=== PATIENT | female | born 1965 | race Caucasian/White ===

== ENCOUNTER 2023-06-07 11:26 | Emergency (ER) | payer OTHER, SELFPAY ==
[2023-06-07 11:30] VITALS: BP 126/82; PULSE 88; RESP 18; TEMP 37.1; O2SAT 99; BMI 26.6
--- NOTE | 2023-06-07 11:32 | XR_ITS ---
[facility] [place] [address] Patient Name: JANETT PIPER MRN: [id number] date: 1965 Sex: F Assigned Patient Location: ER Current Patient Location: ER Accession/Order Number: [id number] Exam Date: 06/07/2023 11:45 Report Date: 06/07/2023 12:27 At the request of: GRACE DENISE Procedure: XR foot LT min 3V STUDY: XR foot LT min 3V, [id number] HISTORY: injury COMPARISON: None FINDINGS: Subacute appearing transverse oriented fracture of the proximal shaft of the left fifth proximal phalanx which demonstrates mild dorsal and medial displacement of the distal fracture with respect to the proximal. There is periosteal callus formation. No significant malalignment. No other acute fracture. No dislocation or suspicious osseous lesion. Mild Achilles insertional enthesopathy. XR/XR foot LT min 3V IMPRESSION: Healing mildly displaced fracture of the left fifth proximal phalanx. Electronically authenticated by: DAHIANA HAYS Date: 06/07/2023 12:27
[2023-06-07 12:54] VITALS: BP 136/92; PULSE 72; RESP 18; TEMP 36.5; O2SAT 100
--- NOTE | 2023-06-07 19:35 | ED_ITS ---
HPI - General Adult General Chief complaint: Extremity Injury, Lower Stated complaint: BROKEN L TOE Time Seen by Provider: 06/07/23 13:13 Source: patient Mode of arrival: walk-in Limitations: no limitations History of Present Illness HPI narrative: Patient is a 57-year-old female who is coming in today complaining of left 5th toe pain. Patient states that she fractured her left toe approximately 2 weeks ago. Patient states that 3 or 4 days ago, patient accidentally hit a hard object in her she believes that she refractured her left pinky 5th toe. Patient has mild swelling to the area, no ecchymosis. Patient works in a factory. Patient has no other acute complaints at this time. Patient is wondering if she needs to be off work. . All systems are negative except as noted/marked. All systems reviewed and o therwise negative. . Nurses note and vital signs reviewed and patient is not hypoxic. General: The patient appears well and in no apparent distress. Patient is resting comfortably on cart. Patient is not toxic, lethargic, or listless Skin: Warm, dry, no pallor noted. There is no rash noted. No petechiae, purpura. Head: Normocephalic, atraumatic Eye: Normal conjunctiva, no drainage, EOMI. PERRL Ears, Nose, Mouth, and Throat: oral mucosa is moist. Nares patent. Mouth without vesicles. Cardiovascular: Regular Rate and Rhythm, no murmur, gallop, rub Respiratory: Patient is in no distress, no accessory muscle use, lungs are clear to auscultation, no wheezing, rales or rhonchi Musculoskeletal: Patient has full range of motion of all of the extremities; Except to her left 5th pinky toe. Patient has moderate pain with flexion and extension of the left 5th pinky toe. Mild swelling, no ecchymosis. Nail is intacct. No some a little hematoma. No pain to the 5th left metatarsal. No other left foot pain, left ankle pain or left lower leg pain., no motor, sensory, or focal neurological deficits Neurological: A&O x3, normal speech Psychiatric: Cooperative Related Data Allergies Allergy/AdvReac Type Severity Reaction Status Date / Time No Known Drug Allergies Allergy Verified 06/07/23 11:30 Exam Constitutional Vital Signs, click to edit/add: Last Vital Signs Temp 97.7 F 06/07/23 12:54 Pulse 72 06/07/23 12:54 Resp 18 06/07/23 12:54 BP 136/92 H 06/07/23 12:54 Pulse Ox 100 06/07/23 12:54 O2 Del Method Room Air 06/07/23 12:54 Course Vital Signs Vital signs: Vital Signs Temperature 98.8 F 06/07/23 11:30 Pulse Rate 88 06/07/23 11:30 Respiratory Rate 18 06/07/23 11:30 Blood Pressure 126/82 06/07/23 11:30 Pulse Oximetry 99 06/07/23 11:30 Oxygen Delivery Method Room Air 06/07/23 11:30 Temperature 97.7 F 06/07/23 12:54 Pulse Rate 72 06/07/23 12:54 Respiratory Rate 18 06/07/23 12:54 Blood Pressure 136/92 H 06/07/23 12:54 Pulse Oximetry 100 06/07/23 12:54 Oxygen Delivery Method Room Air 06/07/23 12:54 Medical Decision Making MDM Narrative Medical decision making narrative: Patient had her left 4th and 5th toe douglas tape, postop shoe was applied. Splint was assisted with . the patient was neurovascularly intact before and after the splint was placed. the affected bones/injured area had proper alignment in a splint. Education on splint care at home was given at bedside. Patient and family have no questions at discharge. Patient has a mildly displaced fracture of the proximal phalanges of the left 5th pinky toe. Patient will douglas tape, postop shoe is applied. Work restrictions were given. Patient will continue using Tylenol, Motrin, ice and fo llow-up with PCP. Discharge Plan Discharge Chief Complaint: Extremity Injury, Lower Clinical Impression: Fracture of toe of left foot Patient Disposition: Home, Self-Care Instructions: Toe Fracture (ED), Foot Fracture in Adults (ED), Post Surgical Shoe (ED) Additional Instructions: Ice 20 minutes on, 20 minutes off. Douglas taping for the next 2-3 weeks. Keep douglas tape on at all times for the next 2-3 weeks unless using ice or taking a shower Wear postop shoe while ambulating only. Stand Alone Forms: Portal Instructions Referrals: Physician,Non-Staff, MD [Primary Care Provider] - 1 week Discharge Date/Time: 06/07/23 15:13
== END 2023-06-07 15:13 | disposition home or self-care (01) ==
PROVIDERS: Emergency Provider Emergency Medicine
DX: S92.512A Displaced fracture of proximal phalanx of left lesser toe(s), initial encounter for closed fracture (principal); W22.8XXA Striking against or struck by other objects, initial encounter
CPT/HCPCS: 73630; 99283

== ENCOUNTER 2023-11-14 08:51 | Emergency (ER) | payer OTHER, SELFPAY ==
[2023-11-14 08:54] VITALS: PULSE 94; RESP 18; TEMP 37.1; O2SAT 99; BMI 23.0
[2023-11-14 08:58] VITALS: BP 120/84
[2023-11-14 09:00] VITALS: O2SAT 99
--- NOTE | 2023-11-14 09:00 | XR_ITS ---
The [address] [address] Patient Name: JANETT PIPER MRN: [id number] date: 1965 Sex: F Assigned Patient Location: ER Current Patient Location: ER Accession/Order Number: [id number] Exam Date: 11/14/2023 09:05 Report Date: 11/14/2023 09:21 At the request of: KAIA THOMPSON Procedure: XR chest 1V EXAMINATION: XR chest 1V HISTORY: cough COMPARISON: No relevant comparison available. FINDINGS: LUNGS: Hyperexpanded lungs without appreciable infiltrates. Symmetric mild opacity over lung bases is suspected to be secondary to anterior soft tissue artifact. VASCULATURE: No increased pulmonary vasculature. PLEURA: No pneumothorax, effusion, or pleural thickening. CARDIAC: No cardiomegaly or cardiac silhouette abnormality. MEDIASTINUM: No visible mass or adenopathy. BONES: No fracture or visible bone lesion. OTHER: Negative. XR/XR chest 1V IMPRESSION: 1. No acute cardiopulmonary process. Electronically authenticated by: FLORENCE PARKINSON Date: 11/14/2023 09:21
--- NOTE | 2023-11-14 09:06 | ED.URI1 ---
HPI - URI/Sore Throat General Chief Complaint: Upper Respiratory Infection Stated Complaint: CHEST CONGESTION Time Seen by Provider: 11/14/23 09:02 Source: patient Limitations: no limitations History of Present Illness HPI Narrative: 57-year-old female presents for a 4-day history of cough and congestion. She has been coughing up some clear phlegm. She had a fever of 101 degrees at home she states. No vomiting or diarrhea. She has not had much of an appetite. Related Data Allergies Allergy/AdvReac Type Severity Reaction Status Date / Time No Known Drug Allergies Allergy Verified 06/07/23 11:30 Review of Systems ROS Narrative A ten point review of systems is negative except as noted above. PFSH PFSH Social History Smoking status: Current every day smoker Exam Narrative Exam Narrative: Nurses note and vital signs reviewed and patient is not hypoxic. General: The patient appears well and in no apparent distress. Patient is resting comfortably on cart. Skin: Warm, dry, no pallor noted. There is no rash noted. Head: Normocephalic, atraumatic Eye: Normal conjunctiva, no drainage Ears, Nose, Mouth, and Throat: oral mucosa is moist. Nares patent. Cardiovascular: Regular Rate and Rhythm Respiratory: Patient is in no distress, no accessory muscle use, lungs are clear to auscultation, no wheezing, rales or rhonchi Back: non-tender GI: Soft and nontender Musculoskeletal: The patient has no evidence of calf tenderness, no pitting edema, symmetrical pulses noted bilaterally Neurological: A&O, normal speech Psychiatric: Cooperative Constitutional Vital Signs, click to edit/add: Last Vital Signs Temp 98.7 F 11/14/23 08:54 Pulse 94 H 11/14/23 08:54 Resp 18 11/14/23 08:54 BP 120/84 11/14/23 08:58 Pulse Ox 99 11/14/23 09:00 O2 Del Method Room Air 11/14/23 09:00 Course Vital Signs Vital signs: Vital Signs Temperature 98.7 F 11/14/23 08:54 Pulse Rate 94 H 11/14/23 08:54 Respiratory Rate 18 11/14/23 08:54 Pulse Oximetry 99 11/14/23 08:54 Oxygen Delivery Method Room Air 11/14/23 08:54 Temperature 98.7 F 11/14/23 08:54 Pulse Rate 94 H 11/14/23 08:54 Respiratory Rate 18 11/14/23 08:54 Blood Pressure 120/84 11/14/23 08:58 Pulse Oximetry 99 11/14/23 09:00 Oxygen Delivery Method Room Air 11/14/23 09:00 MDM - URI/Sore Throat MDM Narrative Medical decision making narrative: Testing shows presence of influenza. Treatment diagnosis and follow-up were discussed with the patient. Differential Diagnosis Differential diagnosis: Likely upper respiratory infection, influenza and other (COVID, pneumonia) Lab Data Attestation: I reviewed the patient's lab results. Labs: Lab Results 11/14/23 Range/Units 08:58 Influenza Type A Ag Positive A Influenza Type B Ag Negative SARS-CoV-2 Ag (CV2AG) Negative (NEGATIVE) Imaging Data Chest x-ray: Radiologist's impression: ITS Impressions Chest X-Ray 11/14/23 09:00 IMPRESSION: 1. No acute cardiopulmonary process. Electronically authenticated by: FLORENCE PARKINSON Date: 11/14/2023 09:21 Discharge Plan Discharge Chief Complaint: Upper Respiratory Infection Clinical Impression: Influenza Patient Disposition: Home, Self-Care Time of Disposition Decision: 09:26 Condition: Good Mode of Transportation: Private Vehicle Instructions: Influenza (ED), Flu Shot (Vaccine) for Adults (ED) Stand Alone Forms: Portal Instructions Referrals: Physician,Non-Staff, MD [Primary Care Provider] - 1 week
[2023-11-14 09:20] LABS: Influenza Virus A Antigen Positive; Influenza Virus B Antigen Negative; Internal Control Within Normal Limits; SARS-CoV-2 Ag NEGATIVE (NEGATIVE)
[2023-11-14 09:31] VITALS: BP 118/92; PULSE 81; RESP 18; O2SAT 99
== END 2023-11-14 09:33 | disposition home or self-care (01) ==
PROVIDERS: Emergency Provider Emergency Medicine
DX: J10.1 Influenza due to other identified influenza virus with other respiratory manifestations (principal); F17.210 Nicotine dependence, cigarettes, uncomplicated; Z20.822 Contact with and (suspected) exposure to COVID-19
CPT/HCPCS: 71045; 87804; 87811; 99284

== ENCOUNTER 2023-11-19 11:33 | Emergency (ER) | payer OTHER, SELFPAY ==
[2023-11-19 11:37] VITALS: BP 114/78; PULSE 117; RESP 18; TEMP 36.6; O2SAT 98; BMI 23.4
[2023-11-19 11:41] VITALS: O2SAT 98
--- OUTSIDE RECORDS SUMMARY | 2023-11-19 11:43 | XMS_ITS | CCD ---
Author Name Unknown Address [address] [place] [address] Organization [facility] Care Team Providers Care Neurosurgical Nurse Name Role Phone Hajdari, Astrit H Unavailable Unavailable Hajdari, Astrit H Unavailable Unavailable Venegas, Nuria Unavailable Unavailable Venegas, Nuria Unavailable Unavailable Hajdari, Astrit H Unavailable Unavailable Hajdari, Astrit H Unavailable Unavailable DR NURIA VENEGAS Primary Care Unavailable DR YURY SAINI Admitting Unavailable YENY, DR YURY Meza Attending Unavailable DR YURY SAINI Consulting Unavailable Allergies Allergy Classification Reported Allergen(s) Allergy Type Date of Onset Reaction(s) Facility (1 source) No Known Medication Allergies; Translations: [No Known Medication Allergies] Propensity to adverse reactions (disorder) [facility] Repository Problems Problem Classification Problem Date Documented Da te Episodic/Chronic Other upper respiratory disease (4 sources) Nasal congestion; Translations: [NASAL CONGESTION] Onset: 06-06-2022 Episodic Substance-related disorders (1 source) Nicotine dependence, cigarettes, uncomplicated; Translations: [NICOTINE DEPEND CIGARETTES UNCOMP] Onset: 06-08-2022 Chronic Unclassified (1 source) CONTACT W/AND (SUSP) EXPOS COVID-19; Translations: [CONTACT W/AND (SUSP) EXPOS COVID-19] Onset: 06-08-2022 Results Test Name Value Interpretation Reference Range Facility Covid-19 PCR (CVDTB)on 05-28 SARS-CoV-2 (COVID-19) RNA KRISTEN+probe Ql (Unsp spec) Not detected Normal NOT DETECTED [facility] Comment on above: Result Comment: When diagnostic testing is negative, the possibility of a false negative should be considered in the context of a patient's recent exposures and the presence of clinical signs and symptoms consistent with SARS-CoV-2. This test is not yet approved or cleared by the [place] FDA. When there are no FDA-approved or cleared tests available, and other criteria are met, FDA can make tests available under an emergency access mechanism called an Emergency Use Authorization (EUA). The EUA for this test is supported by the [employer] of Health and Human Service's declaration that circumstances exist to justify the emergency use of in vitro diagnostics for the detection and/or diagnosis of the virus that causes COVID-19. This EUA will remain in effect for the duration of the COVID-19 declaration justifying emergency of IVDs, unless it is terminated or revoked by the FDA (after which the test may no longer be used). Performed By: #### [facility] #### [facility] [address] [place] [address] Dr. Shameka Sánchez ED Note-Physicianon 11-19-19 ED Note-Physician Patient: JOSUE PIPER Age: 51 years Sex: Female : 1965 Associated Diagnoses: None Author: Manpreet Arce PA-C Basic Information Time seen: Date & time 11/14/17 17:24:00. History source: Patient. Arrival mode: Private vehicle. History limitation: None. Additional information: Chief Complaint from Nursing Triage Note : Chief Complaint 11/14/2017 16:22 EST Chief Complaint pt states sore throat x4 days, body aches, progressively worse with fever, denies cough, able to take fluids well no problems breathing. LD tylenol 1200 . History of Present Illness 51-year-old white female presents emergency room with severe sore throat for the last 2-3 days. Patient is a smoker and denies any ill contacts. She did not go to work Wednesday and has been not feeling well for the last couple days. She is a patient of Nuria Venegas M.D. otherwise healthy. No medication prior to arrival. Patient denies much of a cough. She denies any chills but has had low-grade fever. Patient denies any nausea vomiting associated with her symptoms Review of Systems Constitutional symptoms: Fever. Skin symptoms: Negative except as documented in HPI. Eye symptoms: Negative except as documented in HPI. ENMT symptoms: Ear pain, sore throat. Respiratory symptoms: Negative except as documented in HPI. Cardiovascular symptoms: Negative except as documented in HPI. Gastrointestinal symptoms: Negative except as documented in HPI. Genitourinary symptoms: Negative except as documented in HPI. Musculoskeletal symptoms: Negative except as documented in HPI. Neurologic symptoms: Negative except as documented in HPI. Psychiatric symptoms: Negative except as documented in HPI. Endocrine symptoms: Negative except as documented in HPI. Hematologic/Lymphatic symptoms: Negative except as documented in HPI. Allergy/immunologic symptoms: Negative except as documented in HPI. Additional review of systems information: All other systems reviewed and otherwise negative, All systems reviewed as documented in chart. Health Status Allergies: Allergic Reactions (Selected)No Known Medication Allergies. Past Medical/ Family/ Social History Medical history: Yareli ([id number]): Resolved.. Surgical history: No active procedure history items have been selected or recorded.. Family history: No family history items have been selected or recorded.. Social history: Social & Psychosocial TnhzkxNiseqrg95/02/2017 Risk Assessment: Denies Alcohol UseSubstance Abuse08/28/2017 Risk Assessment: Denies Substance AbuseTobacco Comment: smokes 1/3 ppd. - 08/28/2017 19:04 - Clare SUAREZ, Shanelle Esparza Problem list: Active Problems (1)Smoker . Physical Examination Vital Signs Vital Signs 11/14/2017 16:22 EST Temperature Oral 36.9 DegC Peripheral Pulse Rate 80 bpm Respiratory Rate 20 br/min Systolic Blood Pressure 126 mmHg Diastolic Blood Pressure 92 mmHg HI SpO2 98 % . Measurements 11/14/2017 16:22 EST Height/Length Measured 160 cm Body Mass Index Measured 22.27 kg/m2 Weight Measured 57 kg . Basic Oxygen Information 11/14/2017 16:22 EST SpO2 98 % Oxygen Therapy Room air . General: Alert, no acute distress, anxious, Not ill-appearing, Skin: Warm, dry, no rash. Head: Normocephalic, atraumatic. Neck: Supple, no tenderness. Eye: Pupils are equal, round and reactive to light, extraocular movements are intact, normal conjunctiva, vision unchanged. Ears, nose, mouth and throat: Tympanic membranes clear, oral mucosa moist, Throat: Bilateral, moderate, pharynx, tonsil, erythema, swelling. Cardiovascular: Regular rate and rhythm, No murmur, Normal peripheral perfusion, No edema. Respiratory: Lungs are clear to auscultation, respirations are non-labored, breath sounds are equal, Symmetrical chest wall expansion. Chest wall: No tenderness, No deformity. Back: Nontender, Normal range of motion. Musculoskeletal: Normal ROM, normal strength. Gastrointestinal: Soft, Nontender, Non distended, Normal bowel sounds, No organomegaly. Genitourinary: No tenderness. Neurological: Alert and oriented to person, place, time, and situation, No focal neurological deficit observed, normal sensory observed, normal motor observed, normal speech observed. Lymphatics Psychiatric: Cooperative, appropriate mood & affect. Medical Decision Making Differential Diagnosis: Streptococcal pharyngitis. Rationale: Patient has had severe sore throat for nearly 3 days now. She is not taking any medication today. She denies any chest pain, shortness of breath. She denies any nausea, vomiting.. Documents reviewed: Emergency department nurses' notes. Orders Launch Order Profile (Selected) Inpatient OrdersOrderedBicillin LA 1,200,000 units/2 mL Susp-Inj: 1,200,000 unit(s) = 2 mL, Susp-Inj, IntraMuscular, Once, Stop date 11/14/17 17:38:00 EST, STAT, Start date 11/14/17 17:38:00 ESTibuprofen 600 mg Tab: 600 mg = 1 tab(s), Tab, Oral, Once, Stop date 11/14/17 17:39:00 EST, STAT, Start date 11/14/17 17:39:00 ESTCompletedInfluenza A&B Ag: Swab, Stat collect, 11/14/17 16:26:00 EST, Stop date 11/14/17 16:26:00 EST, Nurse collect, Print Label By Order LocationRapid Strep w/rfx: Swab, Stat collect, 11/14/17 16:26:00 EST, Stop date 11/14/17 16:26:00 EST, Nurse collect, Print Label By Order LocationPrescriptionsPrescrib edLidocaine Viscous 2% mucous membrane solution: 0.1 gram, 5 mL, Topical, TIDAC for mouth sore pain, 100 mL, Refill(s) 0ibuprofen 600 mg Tab: 600 mg = 1 tab(s), Oral, q8hr, # 30 tab(s), Refills(s) 0. Impression and Plan Diagnosis Strep pharyngitis ([id number] J02.0, Discharge, Medical) Plan Condition: Stable. Disposition: Discharged: Time 11/14/17 17:33:00, to home. Prescriptions: Launch prescriptions Pharmacy:ibuprofen 600 mg Tab (Prescribe): 600 = 1 mg tab(s), Oral, q8hr, # 30 tab(s), Refills(s) 0Lidocaine Viscous 2% mucous membrane solution (Prescribe): 0.1 gram, 5 mL, Topical, TIDAC for mouth sore pain, 100 mL, Refill(s) 0. Patient was given the following educational materials: Strep Throat, Mqqp-au-Mkdw, Strep Throat, Naxg-lj-Hwhg. Follow up with: Nuria Venegas In 3 days 11/17/2017 Call in am for recheck later this week if you fail to improve. Take your ibuprofen and alternate with Tylenol every 4 hours back and forth so that they are 8 hours between the same medications. Use lidocaine viscous for topical anesthetic so that you can eat and drink without difficulty. Off work ?2 days. Counseled: Patient, Regarding diagnosis, Regarding diagnostic results, Regarding treatment plan, Regarding prescription, Patient indicated understanding of instructions. Notes: Dr Gonzalez has been informed about evaluation and treatment of patient during this visit. This report was transcribed using voice recognition software. Every effort was made to ensure accuracy, however, inadvertently computerized journal clerk mistakes may be present.Patient was treated and evaluated by the physician assistant track and field coach. The attending physician was in the emergency department at all times and supervised care. The case was discussed with the attending physician and diagnostics were reviewed as needed. Normal [facility] Comment on above: Result Comment: Elec tronically Signed By: Manpreet Arce PA-C\.br\Date and Time Signed: 11/14/17 17:44 EST\.br\Electronically Co-Signed By: Yony Gonzalez M.D.\.br\Date and Time Co-Signed: 11/19/17 20:11 EST Coding Summary.on 11-16-2017 Coding Summary. CODING DATE: 018 FINAL [facility] STATUS: Home (Routine DC) PAYOR: Medicaid EAPG DESCRIPTION 0395 LEVEL II IMMUNOLOGY TESTS 0396 LEVEL I MICROBIOLOGY TESTS 0435 CLASS I PHARMACOTHERAPY 0490 INCIDENTAL TO MEDICAL, SIGNIFICANT PROCEDURE OR THERAPY VISIT 0562 INFECTIONS OF UPPER RESPIRATORY TRACT & OTITIS MEDIA ADMIT DX: REASON FOR VISIT DX: J02.9 Acute pharyngitis, unspecified FINAL DX: PRINCIPAL: J02.0 Streptococcal pharyngitis SECONDARY: PYMT PROC EAPG STAT DESCRIPTION DOCTOR NAME DATE NOTE: The code number assigned matches the documented diagnosis and / or procedure in the patient's chart. However, the narrative phrase printed from the coding software may appear abbreviated, or result in slightly different terminology. Revised Coded By: Negar Maria Revised Date Saved: 11/15/2017 10:38 pm Normal [facility] ED Clinical Summaryon 2017 ED Clinical Summary (Inserted Image. Franca ble to display) [place] [id number] ED Clinical SummaryPerson Information Name: [facility] Age[facility] 51 Years : 1965 12:00 AM Sex: Female Language:Paraguayan PCP: Rubi CHIN, Nuria Narvaez Marital Status: Visit Id: Visit Reason:Throat pain - Adult; SORE THROAT, SWOLLEN GLANDS Speciality: Acuity: 4 Enc Type: Emergency Med Service: Emergency Arrival:11/14/2017 4:02 PM Discharge: 11/14/2017 6:32 PM LOS: 000 02:30 Checkin:11/14/2017 4:02 PM Checkout: 11/14/2017 6:32 PM Dispo Type: Home (Routine DC) EVENTS:Event Name Event Status Request Date/Time Start Date/Time Complete Date/Time Arrive Complete 11/14/2017 4:02 PM 11/14/2017 4:02 PM 11/14/2017 4:02 PM Document Home Meds Request 11/14/2017 4:02 PM Triage Complete 11/14/2017 4:02 PM 11/14/2017 4:26 PM 11/14/2017 4:26 PM Pending Labs Complete 11/14/2017 4:26 PM 11/14/2017 5:09 PM Swab Complete 11/14/2017 4:26 PM 11/14/2017 5:[address] Exam Complete 11/14/2017 5:26 PM 11/14/2017 5:26 PM 11/14/2017 5:26 PM Registration Complete 11/14/2017 5:26 PM 11/14/2017 5:27 PM 11/14/2017 5:48 PM Bed Assign Complete 11/14/2017 5:27 PM 11/14/2017 5:27 PM 11/14/2017 5:27 PM RN Exam Complete 11/14/2017 5:27 PM 11/14/2017 5:31 PM 11/14/2017 5:[address] Exam Complete 11/14/2017 5:29 PM 11/14/2017 5:29 PM 11/14/2017 5:29 PM Meds Admin Complete 11/14/2017 5:38 PM 11/14/2017 5:59 PM Meds Admin Complete 11/14/2017 5:39 PM 11/14/2017 5:59 PM Discharge Complete 11/14/2017 5:39 PM 11/14/2017 6:32 PM 11/14/2017 6:32 PM Reg Complete Request 11/14/2017 5:48 PM Reg Bed Request Complete 11/14/2017 5:48 PM 11/14/2017 5:48 PM 11/14/2017 5:48 PM Transfer Complete 11/14/2017 6:32 PM 11/14/2017 6:32 PM 11/14/2017 6:32 PM ADDRESS:[address] [place] [id number] [facility] DOC NOTES: MEDICAL INFORMATION: Prescriptions Given:Prescription Display ibuprofen (ibuprofen 600 mg Tab) 600 mg = 1 tab(s), Oral, q8hr, # 30 tab(s), Refills(s) 0 lidocaine topical (Lidocaine Viscous 2% mucous membrane solution) 0.1 gram, 5 mL, Topical, TIDAC for mouth sore pain, 100 mL, Refill(s) 0 PATIENT EDUCATION INFORMATION: Instructions:Strep Throat, Iycc-bb-Erzb Follow up:With: Address: When: Nuria Venegas [address] [place] [address] [facility] ([employer] In 3 days 11/17/2017 Comments: Call in am for recheck later this week if you fail to improve. Take your ibuprofen and alternate with Tylenol every 4 hours back and forth so that they are 8 hours between the same medications. Use lidocaine viscous for topical anesthetic so that you can eat and drink without difficulty. Off work ?2 days DIAGNOSIS:Strep pharyngitis Normal [facility] ED Patient Education Noteon 11-14-2017 ED Patient Education Note Patient Education Materials Follows:Strep ThroatStrep throat is an infection of the throat. It is caused by a germ. Strep throat spreads from person to person by coughing, sneezing, or close contact. HOME CARE? Rinse your mouth (gargle) with warm salt water (1 teaspoon salt in 1 cup of water). Do this 3 to 4 times per day or as needed for comfort.? Family members with a sore throat or fever should see a doctor.? Make sure everyone in your house washes their hands well.? Do not share food, drinking cups, or personal items.? Eat soft foods until your sore throat gets better.? Drink enough water and fluids to keep your pee (urine) clear or pale yellow.? Rest.? Stay home from school, daycare, or work until you have taken medicine for 24 hours.? Only take medicine as told by your doctor.? Take your medicine as told. Finish it even if you start to feel better.GET HELP RIGHT AWAY IF:? You have new problems, such as throwing up (vomiting) or bad headaches.? You have a stiff or painful neck, chest pain, trouble breathing, or trouble swallowing.? You have very bad throat pain, drooling, or changes in your voice.? Your neck puffs up (swells) or gets red and tender.? You have a fever.? You are very tired, your mouth is dry, or you are peeing less than normal.? You cannot wake up completely. ? You get a rash, cough, or earache.? You have green, yellow-brown, or bloody spit.? Your pain does not get better with medicine.MAKE SURE YOU:? Understand these instructions.? Will watch your condition.? Will get help right away if you are not doing well or get worse.Document Released: 03/01/2009 Document Revised: 12/05/2012 Document Reviewed: 11/12/2011ExitCare? Patient Information ?2014 [employer] This information is not intended to replace advice given to you by your health care provider. Make sure you discuss any questions you have with your health care provider. Normal [facility] ED Patient Summaryon 018 ED Patient Summary (Inserted Image. Franca ble to display) [address] [address] Patient Discharge Instructions Person Information Name: JANETT PIPER Age: 51 Years Date: 11/14/2017 4:02 PMDischarge Diagnosis: Strep pharyngitis Primary Care Physician: Nuria Venegas MD Provider InformationPrimary Provider: Yony Gonzalez M.D.hysicichanda Chocolate Coater:None The exam and treatment you received in the Emergency Department were for an urgent problem and are not intended as complete care. It is important that you follow up with a doctor, nurse practitioner, or physician?s assistant track and field coach for ongoing care. If your symptoms become worse or you do not improve as expected and you are unable to reach your usual health care provider, you should return to the Emergency Department. We are available 24 hours a day. JANETT PIPER has been given the following list of patient education materials, prescriptions and follow-up instructions: Follow-up Instructions:With: Address: When: Nuria Venegas [address] [place] [id number] [facility] (1) In 3 days 11/17/2017 Comments: Call in am for recheck later this week if you fail to improve. Take your ibuprofen and alternate with Tylenol every 4 hours back and forth so that they are 8 hours between the same medications. Use lidocaine viscous for topical anesthetic so that you can eat and drink without difficulty. Off work ?2 days In the event that this physician does not participate in your insurance network, please consult with your insurance company to find a nearby participating provider. Patient Education Materials:Strep Throat, Flbr-zc-Qole Medications Given:Medication Dose Route penicillin G benzathine 3037414.00 unit(s) IntraMuscular Right Gluteus Medius ibuprofen 600.00 mg Oral Medication Information:New MedicationsPrinted Prescriptionsibuprofen (ibuprofen 600 mg Tab) 1 Tabs By Mouth every 8 hours. Refills: 0.lidocaine topical (Lidocaine Viscous 2% mucous membrane solution) 5 Milliliter Topical before meals as needed for mouth sore pain. Refills: 0.Medications to Continue with No ChangesOther Medicationslevothyroxine (levothyroxine 50 mcg (0.05 mg) Tab) 1 Tabs By Mouth every day. pt advised to follow up with FP w/in 3 days to adjust medication. Refills: 0.Comment: Pharmacy Information: [facility] Thank you for choosing [facility] Patient Education Materials: Strep ThroatStrep throat is an infection of the throat. It is caused by a germ. Strep throat spreads from person to person by coughing, sneezing, or close contact. HOME CARE? Rinse your mouth (gargle) with warm salt water (1 teaspoon salt in 1 cup of water). Do this 3 to 4 times per day or as needed for comfort.? Family members with a sore throat or fever should see a doctor.? Make sure everyone in your house washes their hands well.? Do not share food, drinking cups, or personal items.? Eat soft foods until your sore throat gets better.? Drink enough water and fluids to keep your pee (urine) clear or pale yellow.? Rest.? Stay home from school, daycare, or work until you have taken medicine for 24 hours.? Only take medicine as told by your doctor.? Take your medicine as told. Finish it even if you start to feel better.GET HELP RIGHT AWAY IF:? You have new problems, such as throwing up (vomiting) or bad headaches.? You have a stiff or painful neck, chest pain, trouble breathing, or trouble swallowing.? You have very bad throat pain, drooling, or changes in your voice.? Your neck puffs up (swells) or gets red and tender.? You have a fever.? You are very tired, your mouth is dry, or you are peeing less than normal.? You cannot wake up completely. ? You get a rash, cough, or earache.? You have green, yellow-brown, or bloody spit.? Your pain does not get better with medicine.MAKE SURE YOU:? Understand these instructions.? Will watch your condition.? Will get help right away if you are not doing well or get worse.Document Released: 03/01/2009 Document Revised: 12/05/2012 Document Reviewed: 11/12/2011ExitCare? Patient Information ?2014 [employer] This information is not intended to replace advice given to you by your health care provider. Make sure you discuss any questions you have with your health care provider.VERONIQUE Lundberg TAMMY KAY , have received the following patient education materials/instructions and have verbalized understanding: Patient Education Materials: Strep Throat, Fgbz-qy-Dtma Follow-up Instructions: With: Address: When: Nuria Venegas [facility] [place] [address] [facility] (1) In 3 days 11/17/2017 Comments: Call in am for recheck later this week if you fail to improve. Take your ibuprofen and alternate with Tylenol every 4 hours back and forth so that they are 8 hours between the same medications. Use lidocaine viscous for topical anesthetic so that you can eat and drink without difficulty. Off work ?2 days Prescriptions: [ibuprofen (ibuprofen 600 mg Tab)] [lidocaine topical (Lidocaine Viscous 2% mucous membrane solution)] Patient Signature Date Clinician/Nurse Signature Date 11/14/17 18:32:20 Normal [facility] Influenza A&B Agon 8 Influenzae A Ag Negative Normal Negative [facility] Comment on above: Performed By: #### 2 [id number] ####[facility] [address] [place] [address] Influenzae B Ag Negative Normal Negative [facility] Comment on above: Result Comment: Test sensitivity and specificity vary for age group, specimen type, antigen types, and prevalence of disease. Test results must be evaluated in conjunction with other clinical data available to the physician. Individuals who received nasally administered Influenza A vaccine may have positive test results up to 3 days after vaccination. Performed By: #### 2 [id number] ####[facility] [address] [place] [address] Progress Note-Nurseon 2017 Progress Note-Nurse Pt aware of need for medhold, will continue to moniotro closely Normal [facility] ED Note-Physicianon 09-20-20 ED Note-Physician Patient: JOSUE PIPER Age: 51 years Sex: Female : 1965 Associated Diagnoses: None Author: Guicho Bailey MD Basic Information Time seen: Date & time 08/28/17 19:23:00. History of Present Illness 51-year-old female presents with multiple complaints the chief complaint is chronic fatigue issues feels like she is completely out of energy for the last 3 months. Patient states has been 15 years since she seen her family practice for illicit physician or been to the doctor. He denies any medications. Patient states she feels her chest flutter occasionally. Patient also states she has excessive sweatiness during the night and has to change his sheets multiple times patient is a 50-mxml-vspr smoker she denies any change in weight recently. Denies any nodules or lymphadenopathy. Review of Systems Constitutional symptoms: Negative except as documented in HPI. Respiratory symptoms: no shortness of breath. Cardiovascular symptoms: no chest pain. Neurologic symptoms: no headache. Health Status Allergies: Allergic Reactions (Selected)No Known Medication Allergies. Past Medical/ Family/ Social History Medical history: ResolvedNone ([id number]): Resolved.. Social history: Social & Psychosocial NcrejkEaryscp92/02/2017 Risk Assessment: Denies Alcohol UseSubstance Abuse08/28/2017 Risk Assessment: Denies Substance AbuseTobacco Comment: smokes 1/3 ppd. - 08/28/2017 19:04 - Clare SUAREZ, Shanelle Esparza Physical Examination Vital Signs Time: 08/28/17 20:25:00. General: Alert, no acute distress. Skin: Warm, dry, pink. Head: Normocephalic. Neck: Supple, no tenderness. Eye: Pupils are equal, round and reactive to light. Cardiovascular: Regular rate and rhythm, Normal peripheral perfusion. Respiratory: Lungs are clear to auscultation, respirations are non-labored. Chest wall: No tenderness, No deformity. Back: Nontender. Musculoskeletal: Normal ROM, normal strength, no tenderness. Gastrointestinal: Soft, Nontender, Non distended. Neurological: Alert and oriented to person, place, time, and situation. Lymphatics: No lymphadenopathy. Psychiatric: Cooperative. Medical Decision Making Patient has multiple complaints including lightheadedness fatigue radiculopathy in the right thumb, psoriasis, and diaphoresis. Patient underwent a cardiac workup including: Orthostatics troponins CBC CMP EKG and TSH with T4 all returned within normal values except for mildly depressed potassium at 3.4 and TSH and T4 significantly depressed. Results discussed with patient and advised to start levothyroxine daily. Impression and Plan Cardiac no strike was negative today. Source of heart palpitations possibly be elicited with a Holter monitor in the future. Likely source of fatigue is hypothyroidism as manifested by depressed TSH T4 patient. 50 ?g of levothyroxine daily. Patient has a plethora of other complaints of which are not appropriate to assess in the emergency room. Patient advised to follow-up with family practice within 3 days. Diagnosis Hypothyroid ([id number] E03.9, Discharge, Medical) Plan Condition: Stable. Disposition: Discharged: to home. Normal [facility] Comment on above: Result Comment: Elec tronically Signed By: Leo CHIN, Guicho\.br\Date and Time Signed: 09/19/17 22:09 EST Coding Summary.on 08-30-2017 Coding Summary. CODING DATE: 017 FINAL [facility] STATUS: Home (Routine DC) PAYOR: Self Pay APC DESCRIPTION 5521 Level 1 Imaging without Contrast 5025 Level 5 Type A ED Visits ADMIT DX: REASON FOR VISIT DX: R53.83 Other fatigue R42 Dizziness and giddiness FINAL DX: PRINCIPAL: R00.2 Palpitations SECONDARY: R53.83 Other fatigue E03.9 Hypothyroidism, unspecified F17.210 Nicotine dependence, cigarettes, uncomplicated PYMT PROC APC STAT DESCRIPTION DOCTOR NAME DATE NOTE: The code number assigned matches the documented diagnosis and / or procedure in the patient's chart. However, the narrative phrase printed from the coding software may appear abbreviated, or result in slightly different terminology. Revised Coded By: Terese Childs Revised Date Saved: 08/30/2017 10:58 am Normal [facility] XR Chest 2 Viewson 7 XR Chest 2 Views Exam Date/Time:2016 20:59 ESTReason for Exam:CancerReportIMPRESSION: NO ACUTE CARDIOPULMONARY ABNORMALITY. CLINICAL HISTORY: Cancer. Vomiting, diarrhea, smoking history.COMPARISONS: None available.FINDINGS: 2 views were obtained. Normal cardiac silhouette. Lungs are clear withoutconsolidation. No pleural effusion or pneumothorax. The bony thorax is unremarkable. FINAL REPORT Dictated: 08/29/2017 8:14 am Dolores Finney MD Signed (Electronic Signature): 08/29/2017 8:14 am Signed by: Dolores Finney MD Transcribed by: ANN Technologist: LUIS F Normal [facility] Auto Diffon 08-28-2017 Basophils Auto #/vol (Bld) 0.4 % Normal 0.0-2.0 [facility] Comment on above: Order Comment: Order Added by Discern Expert. Performed By: #### 2 462545, 4799346, 5025630, 64994323, 09317126, 90551951 ####[facility] [address] [place] [address] Basophils Auto #/vol (Bld) 0.0 E9/L Normal 0.0-0.2 [facility] Comment on above: Order Comment: Order Added by Discern Expert. Performed By: #### 2 288024, 4019055, 9949286, 12759580, 43211710, 87282057 ####[facility] [address] [place] [address] Eosinophils 0.3 E9/L Normal 0.0-0.5 [facility] Comment on above: Order Comment: Order Added by Discern Expert. Performed By: #### 2 491656, 5709702, 1748885, 22361113, 81242561, 14601246 ####[facility] [address] [place] [address] Eosinophils/100 leukocytes 3.7 % Normal 0.0-8.0 [facility] Comment on above: Order Comment: Order Added by Discern Expert. Performed By: #### 2 980180, 2070702, 3336240, 15065243, 26918369, 08543409 ####[facility] [address] [place] [address] Lymphocytes 2.3 E9/L Normal 1.0-4.0 [facility] Comment on above: Order Comment: Order Added by Discern Expert. Performed By: #### 2 679939, 7909307, 7457535, 24213883, 65943610, 63466126 ####[facility] [address] [place] [address] Lymphocytes/100 leukocytes 30.5 % Normal 14.0-50.0 [facility] Comment on above: Order Comment: Order Added by Poppy Expert. Performed By: #### 2 467242, 4449109, 4074081, 24023338, 81898501, 63628520 ####[facility] [address] [place] [address] Monocytes 1.0 E9/L Normal 0.2-1.0 [facility] Comment on above: Order Comment: Order Added by Poppy Expert. Performed By: #### 2 332120, 4905270, 4127205, 86957634, 63350620, 95040264 ####[facility] [address] [place] [address] Monocytes/100 leukocytes 13.1 % Normal 4.0-14.0 [facility] Comment on above: Order Comment: Order Added by Discern Expert. Performed By: #### 2 323859, 7005291, 4674723, 32958684, 89135762, 69282928 ####[facility] [address] [place] [address] Neutrophils 4.0 E9/L Normal 2.0-7.5 [facility] Comment on above: Order Comment: Order Added by Discern Expert. Performed By: #### 2 435578, 5616963, 0336128, 31605172, 53592073, 33775599 ####[address] [place] [address] Neutrophils/100 leukocytes 52.3 % Normal 36.0-75.0 [facility] Comment on above: Order Comment: Order Added by Discern Expert. Performed By: #### 2 045731, 9509056, 9833656, 53890407, 21626879, 89110998 ####[address] [address] CBC w/ Auto Diffon 7 Erythrocyte distribution width Auto Ratio (RBC) 14.1 % Normal 10.9-14.2 [facility] Comment on above: Performed By: #### 2 155976, 8206604, 5654435, 79910309, 61295779, 40333610 ####[address] [place] [address] Erythrocytes (RBC) 3.9 E12/L Low 4.3-5.9 [facility] Comment on above: Performed By: #### 2 544243, 7768896, 7909239, 63748768, 54273607, 90025853 ####[address] [place] [address] Hematocrit (HCT) 36.0 % Normal 34.0-46.0 [facility] Comment on above: Performed By: #### 2 755648, 3425717, 6356669, 63867523, 94861367, 88354427 ####[facility] [address] [place] [address] Hemoglobin mass conc (Bld) 12.6 g/dL Normal 12.0-16.0 [facility] Comment on above: Performed By: #### 2 442431, 4925413, 1356506, 67535565, 56420079, 38203106 ####[address] [place] [address] MCH 32.1 pg Normal 27.0-34.0 [facility] Comment on above: Performed By: #### 2 058405, 9835654, 0043119, 27840626, 38581702, 72982618 ####[address] [place] [address]2557 MCHC mass conc (RBC) 34.9 g/dL Normal 31.4-39.3 [facility] Comment on above: Performed By: #### 2 549122, 7860920, 8794669, 60003067, 68647365, 04321758 ####[facility] [address] [place] [address] MCV 92.0 fL Normal 80.0-100.0 [facility] Comment on above: Performed By: #### 2 245431, 8154028, 6754748, 08332649, 53896370, 61807529 ####[address] [place] [address]25[address] Platelet mean volume (PMV) 7.7 fL Normal 6.4-10.8 [facility] Comment on above: Performed By: #### 2 769150, 1187847, 0337591, 10302372, 81627688, 14212108 ####[address] [place] [address] Platelets 272.0 E9/L Normal 150.0-500.0 [facility] Comment on above: Performed By: #### 2 086135, 8911754, 6502639, 80398791, 69153573, 30924881 ####[facility] [place] [address] WBC (Leukocytes) 7.6 E9/L Normal 4.0-11.0 [facility] Comment on above: Performed By: #### 2 854088, 2014941, 7663460, 16414792, 34440810, 15351494 ####[facility] [address] [place] [address] CMPon 08-28-2017 Alanine aminotransferase (ALT) 18 Int._Unit/L Normal 6-46 [facility] Comment on above: Performed By: #### 2 375190, 3179131, 6800040, 64201082, 14277912, 64283785 ####[address] [place] [address]2557 Albumin 3.8 g/dL Normal 3.3-5.0 [facility] Comment on above: Performed By: #### 2 379867, 7218118, 3002708, 82690978, 04765780, 76035540 ####[place] [address] Albumin 1.4 g/dL Normal 1.1-2.2 [facility] Comment on above: Performed By: #### 2 131589, 8732602, 6293289, 46837715, 17612994, 79658253 ####[address] [place] [place] [id number] Alkaline phosphatase (ALP) 79 Int._Unit/L Normal 21-98 [facility] Comment on above: Performed By: #### 2 382188, 4239788, 0294195, 72722659, 03500165, 47677997 ####[facility] [address] [place] [address] Aspartate aminotransferase (AST) 26 Int._Unit/L Normal 5-43 [facility] Comment on above: Performed By: #### 2 383029, 8337864, 6053228, 10061245, 92993567, 34687406 ####[address] [place] [address] Bilirubin (total) 0.4 mg/dL Normal 0.0-1.1 [facility] Comment on above: Performed By: #### 2 341994, 5365374, 5217062, 55936238, 41719471, 04517896 ####[facility] [address] [place] [address] BUN/Creatinine Ratio 19 No Units Normal 10-20 [facility] Comment on above: Performed By: #### 2 241834, 1791565, 2215112, 92068598, 40851968, 79891557 ####[facility] [address] [place] [address] Creatinine 0.8 mg/dL Normal 0.5-1.3 [facility] Comment on above: Performed By: #### 2 028375, 1804798, 0576230, 22568851, 89989487, 60094701 ####[facility] [address] [place] [address] Globulin 2.8 g/dL Normal 1.4-4.0 [facility] Comment on above: Performed By: #### 2 847986, 2479817, 6209833, 54283013, 19689498, 47872073 ####[facility] [address] [place] [address] Protein 6.6 g/dL Normal 6.0-7.8 [facility] Comment on above: Performed By: #### 2 121659, 6005465, 3739866, 30565802, 38481471, 13243894 ####[facility] [address] [place] [address] Urea nitrogen 15 mg/dL Normal 5-21 [facility] Comment on above: Performed By: #### 2 045700, 2603919, 3425522, 45906935, 63452693, 18537395 ####[facility] [address] [place] [address] Anion gap 8 mmol/L Normal 6-16 [facility] Comment on above: Performed By: #### 2 707136, 8637693, 1687474, 99045160, 80038078, 91033798 ####[facility] [address] [place] [address] Calcium 9.0 mg/dL Normal 8.9-11.1 [facility] Comment on above: Performed By: #### 2 704755, 8007911, 6880993, 20175649, 73927604, 57584349 ####[facility] [address] [place] [address] Chloride 103 mmol/L Normal 101-111 [facility] Comment on above: Performed By: #### 2 249804, 7763198, 2067566, 97220524, 72249523, 92613399 ####[facility] [address] [place] [address] CO2 30 mmol/L Normal 21-31 [facility] Comment on above: Performed By: #### 2 864386, 6241109, 3468857, 22423459, 21419506, 62319838 ####[facility] [address] [place] [address] Glucose mass conc 106 mg/dL Normal 55-199 [facility] Comment on above: Result Comment: If t his glucose result represents a fasting glucose, interpretation should refer to the following reference range: 55-99 mg/dL Performed By: #### 2 869362, 8885079, 4151438, 16636614, 89591525, 37359801 ####[facility] [address] [place] [address] Potassium molar conc 3.4 mmol/L Low 3.5-5.3 [facility] Comment on above: Performed By: #### 2 948551, 5394464, 7920270, 57388480, 59538451, 17490412 ####[facility] [address] [place] [address] Sodium 138 mmol/L Normal 135-145 [facility] Comment on above: Performed By: #### 2 679319, 1050139, 9706763, 15831688, 85799179, 40244043 ####[facility] [address] [place] [address] Cardiac 0 Hr.on 08-28-2017 CREATINE KINASE.MB:CCNC:PT:S ER/PLAS:QN:EIA 1.8 ng/mL Normal 0.3-4.9 [facility] Comment on above: Performed By: #### 2 389577, 4040054, 4375673, 78750037, 07456996, 57321277 ####[facility] [address] [place] [address] Myoglobin 20 ng/mL Normal <=69 [facility] Comment on above: Performed By: #### 2 456518, 5429477, 1796187, 58247705, 26897081, 54604302 ####[facility] [address] [place] [address] Troponin I.cardiac mass conc ng/mL Normal <=0.03 [facility] Comment on above: Result Comment: New Troponin Assay 02/08/14ROC [place] Cutoff value > or = 0.03 ng/mL in conjunction with clinical conditions of myocardial infarction.([email or web address]/[email or web address]) Performed By: #### 2 581783, 8584744, 5281490, 13342232, 43118209, 25198147 ####[facility] [address] [place] [address] Creatine kinase (CK) 71 Int._Unit/L Normal 14-261 [facility] Comment on above: Performed By: #### 2 736091, 5665581, 6032399, 36503234, 06028102, 24994912 ####[facility] [address] [place] [address] ED Clinical Summaryon 2016 ED Clinical Summary (Inserted Image. Franca ble to display) [address] [address] ED Clinical SummaryPerson Information Name: JANETT PIPER/AddisonViviana Age: 51 Years : 1965 12:00 AM Sex: Female Language:Paraguayan PCP: Nuria Venegas MD Marital Status: Visit Id: Visit Reason:Weakness or fatigue; Shoulder pain-swelling; Diarrhea; Vomiting; Weakness or fatigue; R SHOULDER PAIN Speciality: Acuity: 3 Enc Type: Emergency Med Service: Emergency Arrival:08/28/2017 5:56 PM Discharge: 08/28/2017 9:15 PM LOS: 000 03:19 Checkin:08/28/2017 5:56 PM Checkout: 08/28/2017 9:15 PM Dispo Type: Home (Routine DC) EVENTS:Event Name Event Status Request Date/Time Start Date/Time Complete Date/Time Arrive Complete 08/28/2017 5:56 PM 08/28/2017 5:56 PM 08/28/2017 5:56 PM Document Home Meds Complete 08/28/2017 5:56 PM 08/28/2017 7:06 PM 08/28/2017 7:06 PM Triage Complete 08/28/2017 5:56 PM 08/28/2017 6:32 PM 08/28/2017 6:32 PM Bed Assign Complete 08/28/2017 6:31 PM 08/28/2017 6:31 PM 08/28/2017 6:[address] Exam Complete 08/28/2017 6:31 PM 08/28/2017 7:11 PM 08/28/2017 7:11 PM RN Exam Complete 08/28/2017 6:31 PM 08/28/2017 7:06 PM 08/28/2017 7:06 PM EKG Complete 08/28/2017 6:32 PM 08/28/2017 7:07 PM Registration Complete 08/28/2017 7:11 PM 08/28/2017 7:21 PM 08/28/2017 7:21 PM Reg Complete Request 08/28/2017 7:21 PM Reg Bed Request Complete 08/28/2017 7:21 PM 08/28/2017 7:21 PM 08/28/2017 7:21 PM Pending Labs Complete 08/28/2017 7:25 PM 08/28/2017 8:15 PM Lab Complete 08/28/2017 7:25 PM 08/28/2017 7:55 PM Pending Labs Complete 08/28/2017 7:37 PM 08/28/2017 7:37 PM 08/28/2017 7:55 PM Lab Complete 08/28/2017 7:37 PM 08/28/2017 7:37 PM 08/28/2017 7:55 PM Pending Labs Complete 08/28/2017 7:42 PM 08/28/2017 7:42 PM 08/28/2017 7:42 PM Lab Complete 08/28/2017 7:42 PM 08/28/2017 7:42 PM 08/28/2017 7:[address] Exam Complete 08/28/2017 7:48 PM 08/28/2017 7:48 PM 08/28/2017 7:48 PM Registration Complete 08/28/2017 7:48 PM 08/28/2017 8:17 PM 08/28/2017 8:17 PM Discharge Complete 08/28/2017 8:34 PM 08/28/2017 9:15 PM 08/28/2017 9:15 PM Meds Admin Complete 08/28/2017 8:36 PM 08/28/2017 9:04 PM X-Ray Complete 08/28/2017 8:43 PM 08/28/2017 8:51 PM 08/28/2017 8:59 PM Wet Read Request 08/28/2017 8:59 PM Transfer Complete 08/28/2017 9:15 PM 08/28/2017 9:15 PM 08/28/2017 9:15 PM ADDRESS:[address] [place] [id number] [facility] DOC NOTES: MEDICAL INFORMATION: Prescriptions Given:Prescription Display levothyroxine (levothyroxine 50 mcg (0.05 mg) Tab) 50 microgram = 1 tab(s), Oral, Daily, pt advised to follow up with FP w/in 3 days to adjust medication, # 60 tab(s), Refills(s) 0 PATIENT EDUCATION INFORMATION: Instructions:Hypothyroidism Follow up:With: Address: When: Nuria Voss[address] [place], [place] [address] [address] Business (1) In 3 days 08/31/2017 With: Address: When: Nuria [address]oss[address] [place], [place] [address] [address] Business (1) In 3 days DIAGNOSIS:Hypothyroidism Normal [facility] ED Patient Education Noteon 08-28-2017 ED Patient Education Note Patient Education Materials Follows:MedicineHypothyroidis mThe thyroid is a large gland located in the lower front of your neck. The thyroid gland helps control metabolism. Metabolism is how your body handles food. It controls metabolism with the hormone thyroxine. When this gland is underactive (hypothyroid), it produces too little hormone. CAUSESThese include: ? Absence or destruction of thyroid tissue.? Goiter due to iodine deficiency.? Goiter due to medications.? Congenital defects (since ).? Problems with the pituitary. This causes a lack of TSH (thyroid stimulating hormone). This hormone tells the thyroid to mill turner more hormone.SYMPTOMS? Lethargy (feeling as though you have no energy)? Cold intolerance? Weight gain (in spite of normal food intake)? Dry skin? Coarse hair? Menstrual irregularity (if severe, may lead to infertility)? Slowing of thought processesCardiac problems are also caused by insufficient amounts of thyroid hormone. Hypothyroidism in the is cretinism, and is an extreme form. It is important that this form be treated adequately and immediately or it will lead rapidly to retarded physical and mental development.DIAGNOSISTo prove hypothyroidism, your caregiver may do blood tests and ultrasound tests. Sometimes the signs are hidden. It may be necessary for your caregiver to watch this illness with blood tests either before or after diagnosis and treatment.TREATMENTLow levels of thyroid hormone are increased by using synthetic thyroid hormone. This is a safe, effective treatment. It usually takes about four weeks to gain the full effects of the medication. After you have the full effect of the medication, it will generally take another four weeks for problems to leave. Your caregiver may start you on low doses. If you have had heart problems the dose may be gradually increased. It is generally not an emergency to get rapidly to normal.HOME CARE INSTRUCTIONS? Take your medications as your caregiver suggests. Let your caregiver know of any medications you are taking or start taking. Your caregiver will help you with dosage schedules.? As your condition improves, your dosage needs may increase. It will be necessary to have continuing blood tests as suggested by your caregiver.? Report all suspected medication side effects to your caregiver.SEEK MEDICAL CARE IF:Seek medical care if you develop:? Sweating.? Tremulousness (tremors).? Anxiety.? Rapid weight loss.? Heat intolerance.? Emotional swings.? Diarrhea.? Weakness.SEEK IMMEDIATE MEDICAL CARE IF:You develop chest pain, an irregular heart beat (palpitations), or a rapid heart beat.MAKE SURE YOU:? Understand these instructions. ? Will watch your condition.? Will get help right away if you are not doing well or get worse.Document Released: 09/13/2006 Document Revised: 12/05/2012 Document Reviewed: 05/03/2009ExitCare? Patient Information ?2015 [employer] This information is not intended to replace advice given to you by your health care provider. Make sure you discuss any questions you have with your health care provider. Normal [facility] ED Patient Summaryon 017 ED Patient Summary (Inserted Image. Franca ble to display) [address] [address] Patient Discharge Instructions Person Information Name: JANETT PIPER Age: 51 Years Date: 08/28/2017 5:56 PMDischarge Diagnosis: Hypothyroidism Primary Care Physician: Nuria Venegas MD Provider InformationPrimary Provider: Eliezer Bailey MDsicichanda Chocolate Coater:None The exam and treatment you received in the Emergency Department were for an urgent problem and are not intended as complete care. It is important that you follow up with a doctor, nurse practitioner, or physician?s assistant track and field coach for ongoing care. If your symptoms become worse or you do not improve as expected and you are unable to reach your usual health care provider, you should return to the Emergency Department. We are available 24 hours a day. VERONIQUEJANETT has been given the following list of patient education materials, prescriptions and follow-up instructions: Follow-up Instructions:With: Address: When: Nuria Veneags [address] [facility] [place] [address] [facility] (1) In 3 days 08/31/2017 With: Address: When: Nuria Venegas [address] [facility] [place] [address] [facility] (1) In 3 days In the event that this physician does not participate in your insurance network, please consult with your insurance company to find a nearby participating provider. Patient Education Materials:Hypothyroidism Medications Given:Medication Dose Route levothyroxine 50.00 microgram Oral potassium bicarbonate 25.00 mEq Oral Medication Information:New MedicationsPrinted Prescriptionslevothyroxine (levothyroxine 50 mcg (0.05 mg) Tab) 1 Tabs By Mouth every day. pt advised to follow up with FP w/in 3 days to adjust medication. Refills: 0.Comment: Pharmacy Information: [facility] Francine Mcguire Thank you for choosing [facility] Patient Education Materials: HypothyroidismThe thyroid is a large gland located in the lower front of your neck. The thyroid gland helps control metabolism. Metabolism is how your body handles food. It controls metabolism with the hormone thyroxine. When this gland is underactive (hypothyroid), it produces too little hormone. CAUSESThese include: ? Absence or destruction of thyroid tissue.? Goiter due to iodine deficiency.? Goiter due to medications.? Congenital defects (since ).? Problems with the pituitary. This causes a lack of TSH (thyroid stimulating hormone). This hormone tells the thyroid to mill turner more hormone.SYMPTOMS? Lethargy (feeling as though you have no energy)? Cold intolerance? Weight gain (in spite of normal food intake)? Dry skin? Coarse hair? Menstrual irregularity (if severe, may lead to infertility)? Slowing of thought processesCardiac problems are also caused by insufficient amounts of thyroid hormone. Hypothyroidism in the is cretinism, and is an extreme form. It is important that this form be treated adequately and immediately or it will lead rapidly to retarded physical and mental development.DIAGNOSISTo prove hypothyroidism, your caregiver may do blood tests and ultrasound tests. Sometimes the signs are hidden. It may be necessary for your caregiver to watch this illness with blood tests either before or after diagnosis and treatment.TREATMENTLow levels of thyroid hormone are increased by using synthetic thyroid hormone. This is a safe, effective treatment. It usually takes about four weeks to gain the full effects of the medication. After you have the full effect of the medication, it will generally take another four weeks for problems to leave. Your caregiver may start you on low doses. If you have had heart problems the dose may be gradually increased. It is generally not an emergency to get rapidly to normal.HOME CARE INSTRUCTIONS? Take your medications as your caregiver suggests. Let your caregiver know of any medications you are taking or start taking. Your caregiver will help you with dosage schedules.? As your condition improves, your dosage needs may increase. It will be necessary to have continuing blood tests as suggested by your caregiver.? Report all suspected medication side effects to your caregiver.SEEK MEDICAL CARE IF:Seek medical care if you develop:? Sweating.? Tremulousness (tremors).? Anxiety.? Rapid weight loss.? Heat intolerance.? Emotional swings.? Diarrhea.? Weakness.SEEK IMMEDIATE MEDICAL CARE IF:You develop chest pain, an irregular heart beat (palpitations), or a rapid heart beat.MAKE SURE YOU:? Understand these instructions. ? Will watch your condition.? Will get help right away if you are not doing well or get worse.Document Released: 09/13/2006 Document Revised: 12/05/2012 Document Reviewed: 05/03/2009ExitCare? Patient Information ?2014 [employer] [facility]. This information is not intended to replace advice given to you by your health care provider. Make sure you discuss any questions you have with your health care provider.VERONIQUE Lundberg TAMMY KAY , have received the following patient education materials/instructions and have verbalized understanding: Patient Education Materials: Hypothyroidism Follow-up Instructions: With: Address: When: Nuria Venegas [address] [place] [address] Business (1) In 3 days 08/31/2017 With: Address: When: Nuria Venegas [address] , [place] [address] [facility] (1) In 3 days Prescriptions: [levothyroxine (levothyroxine 50 mcg (0.05 mg) Tab)] Patient Signature Date Clinician/Nurse Signature Date 08/28/17 21:15:34 Normal [facility] T4 & TSHon 08-28-2017 Thyroid stimulating hormone (TSH) 18.56 mcIU/mL High 0.34-5.60 [facility] Comment on above: Performed By: #### 2 [id number] ####[facility] [id number] [place] [address] Thyroxine (T4) 6.1 microgram/dL Normal 4.6-9.1 [facility] Comment on above: Performed By: #### 2 [id number] ####[facility] [id number] [place] [address] eGFRon 08-28-2017 eGFR (black) mL/min/{1.73_m2} Normal >=59 [facility] Comment on above: Order Comment: Order added by Discern Expert. Result Comment: eGFR is race adjusted. AA=. Performed By: #### 2 [id number], [id number] ####[facility] [address] [place] [address] eGFR (non-black) mL/min/{1.73_m2} Normal >=59 [facility] Comment on above: Order Comment: Order added by Discern Expert. Result Comment: Qc Chemist leslie kidney disease could be indicated at eGFR's of less than 60 mL/min/1.73m2. Kidney failure is indicated at less than 15 mL/min/1.73m2. Performed By: #### 2 [id number] ####[facility] [id number] [place] [address] Encounters Encounter Date Encounter Type Care Provider Facility Start: 06-06-2022 End: 06-06-[address] NURIA VENEGAS Facility: Start: 11-14-2017 End: 11-14-2017 Emergency department patient visit Nuria Venegas [facility] Start: 08-28-2017 End: 08-28-2017 Emergency department patient visit Alixjuan francisco Nagyrobert Facility:[facility] Payers Date Payer Category Payer Unknown [id number] 2017 Private Health Insurance [id number] 1965 Unknown [id number] 1958 Unknown [id number] Summary Purpose Family History No Family History Records FoundNo Family History Records Found Advance Directives No Advanced Directives Records FoundNo Advanced Directives Records Found Additional Source Comments INFORMATION SOURCE (unrecogn ized section and content) DATE CREATED AUTHOR 03/17/2018 [facility] DATE CREATED AUTHOR [facility]08[facility]2022 [facility] FOR RECORDS PERTAINING TO PATIENTS WHO ARE OR HAVE BEEN ENROLLED IN A CHEMICAL DEPENDENCY/SUBSTANCEABUSE PROGRAM, SOME INFORMATION MAY BE OMITTED. This clinical summary was aggregated from multiple sources. Caution should be exercised in using it in the provision of clinical care. This summary normalizes information from multiple sources, and as a consequence, information in this document may materially change the coding, format and clinical context of patient data. In addition, data may be omitted in some cases. CLINICAL DECISIONS SHOULD BE BASED ON THE PRIMARY CLINICAL RECORDS. [facility]. provides no warranty or guarantee of the accuracy or completeness of information in this document.
--- NOTE | 2023-11-19 12:49 | ED_ITS ---
HPI - General Adult General Chief complaint: Abdominal Pain Stated complaint: ABDOMINAL PAIN Time Seen by Provider: 11/19/23 12:32 Source: patient Mode of arrival: walk-in Limitations: no limitations History of Present Illness HPI narrative: Patient is a 57-year-old female who is presenting to the ER with chief complaint of left lower quadrant abdominal pain that patient believes is muscle skeletal. Patient states she was diagnosed with influenza in the last week. Patient has been coughing, patient has been sleeping and laying on her left lateral of the, position, and forcefully coughing for the past week. Patient has no significant chest wall pain, but she believes she has been straining her left lower quadrant in the position she was laying on her left side and believes that she has a muscle pull to her left lower quadrant. Patient has not had a colonoscopy yet. Patient has no bowel or bladder changes. Patient states she is having normal soft stool, no constipation symptoms at all. Patient has no urinary frequency, urgency, or burning. Patient has no fever or chills. Patient has no history of kidney stone or diverticulitis. Patient chief concern is she was due to go back to work last night, patient did not go back to work last night secondary to influenza symptoms and left lower quadrant pain. Patient is here for a work note. All systems are negative except as noted/marked. All systems reviewed and otherwise negative. Nurses note and vital signs reviewed and patient is not hypoxic. General: The patient appears well and in no apparent distress. Patient is resting comfortably on cart. Patient is not toxic, lethargic, or listless Skin: Warm, dry, no pallor noted. There is no rash noted. No petechiae, purpura. Head: Normocephalic, atraumatic Eye: Normal conjunctiva, no drainage, EOMI. PERRL Ears, Nose, Mouth, and Throat: oral mucosa is moist. Nares patent. Mouth without vesicles. Cardiovascular: Regular Rate and Rhythm, no murmur, gallop, rub Respiratory: Patient is in no distress, no accessory muscle use, lungs are clear to auscultation, no rales or rhonchi. Patient has faint wheezing to bilateral lung bellamy posteriorly bilateral, minimal. Equal breath sounds bilateral. Back: non-tender, no CVA tenderness bilaterally to percussion. No CT LS midline pain GI: Mild to moderate pinpoint left lower quadrant tenderness to palpation just above and cephalad to the left ASIS. No tenderness to palpation, no masses appreciated. No rebound, guarding, or rigidity noted. No distention. No rash, no peritoneal signs. Musculoskeletal: Patient has full range of motion of all of the extremities, no motor, sensory, or focal neurological deficits Neurological: A&O x4, normal speech Psychiatric: Cooperative Related Data Home Medications Medication Instructions Recorded Confirmed No Known Home Medications 11/19/23 11/19/23 Allergies Allergy/AdvReac Type Severity Reaction Status Date / Time No Known Drug Allergies Allergy Verified 06/07/23 11:30 [facility] Social History Smoking status: Current every day smoker Exam Constitutional Vital Signs, click to edit/add: Last Vital Signs Temp 97.9 F 11/19/23 11:37 Pulse 117 H 11/19/23 11:37 Resp 18 11/19/23 11:37 BP 114/78 11/19/23 11:37 Pulse Ox 98 11/19/23 11:41 O2 Del Method Room Air 11/19/23 11:41 Course Vital Signs Vital signs: Vital Signs Temperature 97.9 F 11/19/23 11:37 Pulse Rate 117 H 11/19/23 11:37 Respiratory Rate 18 11/19/23 11:37 Blood Pressure 114/78 11/19/23 11:37 Pulse Oximetry 98 11/19/23 11:37 Oxygen Delivery Method Room Air 11/19/23 11:37 Temperature 97.9 F 11/19/23 11:37 Pulse Rate 117 H 11/19/23 11:37 Respiratory Rate 18 11/19/23 11:37 Blood Pressure 114/78 11/19/23 11:37 Pulse Oximetry 98 11/19/23 11:41 Oxygen Delivery Method Room Air 11/19/23 11:41 Medical Decision Making MDM Narrative Medical decision making narrative: Lengthy discussion at bedside and my recommendation of having IV, lab work, CT o f the abdomen pelvis to rule out underlying etiology of left lower quadrant pain. Differential diagnosis was discussed of colitis, enteritis, GI flu, kidney stone, diverticulitis, abscess, UTI, pyelonephritis. Patient is declining any testing in the ER. Patient strongly believes this is muscle skeletal. Patient just needs a work note. Patient is only using Robitussin eryf-xfs-kgrxfyl. Patient does have albuterol inhaler at home that she is not using. Patient was recommended to use her inhaler every 4 hours, and if she is having more productive cough that is a good thing, she is relieving mucous plugs. Patient will use her opiate inhaler every 4 hours while awake, multiple zcoq-lvf-opovmeq medications can be used to help treat her symptoms. Patient will follow-up with PCP for further testing, work note was provided. No questions at discharge. Patient understands if she starts having more intractable pain, nausea, vomiting, or any other acute complaints return back to the ER. Discharge Plan Discharge Chief Complaint: Abdominal Pain Clinical Impression: Abdominal pain, left lower quadrant, Influenza Patient Disposition: Home, Self-Care Time of Disposition Decision: 12:44 Condition: Fair Prescriptions / Home Meds: No Action No Known Home Medications Instructions: Influenza (ED), Abdominal Pain (ED) Additional Instructions: Increase fluids at home, Gatorade, Powerade, or water. Alternate using DayQuil, NyQuil, and Flonase. At Mucinex as well as needed. Alternate Tylenol and Motrin every 4 hours to help with fever control, body aches or joint pain. Use lbxp-cxg-aratorc vitamin C, vitamin D3, and zinc to help fight infection and help with her immune system. If left lower quadrant abdominal pain is worsening, you develop fever, chills, increasing pain, or any other acute concerns return back to the ER if you change your mind and would like IV, lab work, and CAT scan of your abdomen and pelvis. Stand Alone Forms: Work/School Release, Portal Instructions Referrals: Physician,Non-Staff, MD [Primary Care Provider] - 1 week
== END 2023-11-19 12:53 | disposition home or self-care (01) ==
PROVIDERS: Emergency Provider Emergency Medicine
DX: R10.32 Left lower quadrant pain (principal); J11.1 Influenza due to unidentified influenza virus with other respiratory manifestations; F17.210 Nicotine dependence, cigarettes, uncomplicated
CPT/HCPCS: 99281

== ENCOUNTER 2023-12-20 12:50 | Emergency (ER) | payer SELFPAY ==
[2023-12-20 13:01] VITALS: BP 147/79; PULSE 72; RESP 18; TEMP 36.7; O2SAT 99; BMI 21.3
--- NOTE | 2023-12-20 13:08 | XR_ITS ---
The [address] [address] Patient Name: JANETT PIPER MRN: [id number] date: 1965 Sex: F Assigned Patient Location: ER Current Patient Location: ER Accession/Order Number: [id number] Exam Date: 12/20/2023 13:25 Report Date: 12/20/2023 13:45 At the request of: KAIA THOMPSON Procedure: XR chest 2V EXAMINATION: XR chest 2V HISTORY: shortness of breath COMPARISON: 11/14/2023 TECHNIQUE: PA and lateral FINDINGS: LUNGS: The right is clear. Left lower lobe infiltrate obscuring the medial left hemidiaphragm. Left upper lung zone is clear VASCULATURE: No increased pulmonary vasculature. PLEURA: No pneumothorax, effusion, or pleural thickening. CARDIAC: No cardiomegaly or cardiac silhouette abnormality. MEDIASTINUM: No visible mass or adenopathy. Mild aortic atherosclerosis BONES: No fracture or visible bone lesion. OTHER: Negative. XR/XR chest 2V IMPRESSION: Left lower lobe pneumonia Electronically authenticated by: GRUPO MENDEZ Date: 12/20/2023 13:45
--- NOTE | 2023-12-20 14:29 | ECG_ITS ---
The [facility] Test Date: 2023-12-20 Pat Name: JANETT PIPER Department: Room: - Gender: Female [employer]: : 1965 Requested By: Order Number: [id number] Reading MD: SUNG BURGESS Measurements Intervals [place] Rate: 70 P: 79 LA: 162 QRS: 90 QRSD: 84 T: 65 QT: 370 QTc: 392 Interpretive Statements 1100 Sinus rhythm 9110 normal ECG No previous ECG available for comparison Electronically Signed On 12-20-2023 22:46:35 EDT by SUNG BURGESS
[2023-12-20 14:54] LABS: Basophils Absolute Auto 0.1 10^3/uL (0.0-0.1); Basophils Percent Auto 0.6 % (0.2-2.0); Eosinophils Absolute Auto 0.2 10^3/uL (0.0-0.7); Eosinophils Percent Auto 1.7 % (0.9-7.0); Hematocrit 39.2 % (36.0-48.0); Hemoglobin 12.6 g/dL (12.0-16.0); Immature Granulocytes Abs Auto 0.03 10^3/uL (0.00-0.03); Immature Granulocytes Pct Auto 0.3 % (0.0-0.5); Lymphocytes Absolute Auto 2.6 10^3/uL (1.2-3.8); Lymphocytes Percent Auto 29.6 % (20.5-60.0); Mean Corpuscular HGB Conc 32.1 g/dL (29.9-35.2); Mean Corpuscular Hemoglobin 29.7 pg (26.7-34.0); Mean Corpuscular Volume 92.5 fL (81.0-99.0); Mean Platelet Volume 9.8 fL (9.5-13.5); Monocytes Absolute Auto 0.6 10^3/uL (0.3-0.8); Monocytes Percent Auto 6.8 % (1.7-12.0); Neutrophils Absolute Auto 5.3 10^3/uL (1.4-6.5); Platelet Count 457 10^3/uL (150-450); Red Blood Count 4.24 10^6/uL (4.20-5.40); Red Cell Distribution Width 13.6 % (11.0-15.0); White Blood Count 8.7 10^3/uL (4.0-11.0)
[2023-12-20 15:00] VITALS: PULSE 74
[2023-12-20] MEDS: 0.9 % SODIUM CHLORIDE 1,000 ML 1000 ML IV (15:07)
--- NOTE | 2023-12-20 15:10 | ED_ITS ---
HPI - URI/Sore Throat General Chief Complaint: Upper Respiratory Infection Stated Complaint: BLISTERS ON MOUTH/ INFLUENZA LIKE SYMPTOMS Time Seen by Provider: 12/20/23 14:29 Source: patient Limitations: no limitations History of Present Illness HPI Narrative: Patient is a 58-year-old female who presents to the emergency department for continued weakness, cough, congestion, shortness of breath. She was seen in this emergency department 2 weeks ago and diagnosed with influenza. She states she has had blisters forming around her lips so she believes she has had a fever but she has not had an objective fever at home. She reports nausea without vomiting. She has not had any hemoptysis. She has occasional sputum production. She reports wheezing, chest congestion and general malaise. She was not discharged home on any medications for influenza. She is a regular smoker but denies any history of COPD or asthma. Related Data Previous Rx's ?Medication ?Instructions ?Recorded albuterol sulfate 90 mcg/actuation 2 inh inhalation Q4H PRN shortness 12/20/23 aerosol inhaler of breath or wheezing #8.5 grams doxycycline hyclate 100 mg tablet 100 mg PO BID 10 days #20 tabs 12/20/23 ondansetron 4 mg disintegrating 4 mg PO Q6H PRN nausea and 12/20/23 tablet vomiting #12 tabs prednisone 20 mg tablet See Rx Instructions .Route 12/20/23 .COMPLEX #12 tabs Allergies Allergy/AdvReac Type Severity Reaction Status Date / Time No Known Drug Allergies Allergy Verified 12/20/23 13:01 Review of Systems ROS Constitutional Reports: chills; Denies: fever Ears, nose, mouth, and throat Reports: nasal congestion; Denies: throat pain Respiratory Reports: shortness of breath, cough, wheezing and change in phlegm color; Denies: coughing up blood Gastrointestinal Reports: nausea; Denies: vomiting or diarrhea Integumentary/Breast Denies: rash Neurological Reports: headache Hematologic/Lymphatic Denies: easy bruising or easy bleeding PFSH PFS Social History Smoking status: Current every day smoker Exam Narrative Exam Narrative: Gen.: Awake, alert, in no distress Head: Normocephalic, atraumatic ENT: Moist mucous membranes Respiratory: No respiratory distress, Expiratory wheezing in the bilateral upper lobe Cardio: Regular rate and rhythm Extremities: Moves extremities equally Psych: Normal mood and affect Neuro: No focal neuro deficit Skin: Warm, dry, intact Constitutional Vital Signs, click to edit/add: Last Vital Signs Temp 98.1 F 12/20/23 13:01 Pulse 72 12/20/23 13:01 Resp 18 12/20/23 13:01 BP 147/79 H 12/20/23 13:01 Pulse Ox 99 12/20/23 13:01 O2 Del Method Room Air 12/20/23 13:01 Course Vital Signs Vital signs: Vital Signs Temperature 98.1 F 12/20/23 13:01 Pulse Rate 72 12/20/23 13:01 Respiratory Rate 18 12/20/23 13:01 Blood Pressure 147/79 H 12/20/23 13:01 Pulse Oximetry 99 12/20/23 13:01 Oxygen Delivery Method Room Air 12/20/23 13:01 Temperature 98.1 F 12/20/23 13:01 Pulse Rate 72 12/20/23 13:01 Respiratory Rate 18 12/20/23 13:01 Blood Pressure 147/79 H 12/20/23 13:01 Pulse Oximetry 99 12/20/23 13:01 Oxygen Delivery Method Room Air 12/20/23 13:01 MDM - URI/Sore Throat MDM Narrative Medical decision making narrative: Patient had a chest x-ray performed in the lobby due to delayed wait times secondary to ER volume. Chest x-ray shows a left lower lobe pneumonia, although the area is mild and may be residual from her influenza infection. Patient was given IV fluids. Sepsis labs were ordered although the patient has stable vital signs and no evidence of sepsis at this time. Labs are unremarkable, she was treated with Solu-Medrol, breathing treatment, Zofran in the ER. She will be discharged home with albuterol inhaler, doxycycline for lung coverage, prednisone and Zofran. Work note requested. Patient stable on reevaluation by attending physician at discharge. Follow-up with PCP and return to the ER if symptoms change or worsen Medical Records Attestation: I reviewed the patient's medical records. Lab Data Attestation: I reviewed the patient's lab results. Labs: Lab Results 12/20/23 Range/Units 14:35 WBC 8.7 (4.0-11.0) 10^3/uL RBC 4.24 (4.20-5.40) 10^6/uL Hgb 12.6 (12.0-16.0) g/dL Hct 39.2 (36.0-48.0) % MCV 92.5 (81.0-99.0) fL MCH 29.7 (26.7-34.0) pg MCHC 32.1 (29.9-35.2) g/dL RDW 13.6 (11.0-15.0) % Plt Count 457 H (150-450) 10^3/uL MPV 9.8 (9.5-13.5) fL Neut % (Auto) 61.0 (43.0-75.0) % Lymph % (Auto) 29.6 (20.5-60.0) % Gilliam % (Auto) 6.8 (1.7-12.0) % Eos % (Auto) 1.7 (0.9-7.0) % Baso % (Auto) 0.6 (0.2-2.0) % Neut # (Auto) 5.3 (1.4-6.5) 10^3/uL Lymph # (Auto) 2.6 (1.2-3.8) 10^3/uL Gilliam # (Auto) 0.6 (0.3-0.8) 10^3/uL Eos # (Auto) 0.2 (0.0-0.7) 10^3/uL Baso # (Auto) 0.1 (0.0-0.1) 10^3/uL Abs Immat Gran (auto) 0.03 (0.00-0.03) 10^3/uL Imm/Tot Granulo (auto) 0.3 (0.0-0.5) % Sodium 139 (136-145) mmol/L Potassium 3.6 (3.5-5.1) mmol/L Chloride 101 (98-107) mmol/L Carbon Dioxide 26.9 (21.0-32.0) mmol/L Anion Gap 14.7 BUN 8.0 (7.0-18.0) mg/dL Creatinine 0.81 (0.55-1.02) mg/dL Est GFR ( Amer) >60 (>=60) Est GFR (Non-Af Amer) >60 (>=60) BUN/Creatinine Ratio 9.9 Glucose 118 H (74-106) mg/dL Lactate 1.1 (0.4-2.0) mmol/L Calcium 9.3 (8.5-10.1) mg/dL Total Bilirubin 0.2 (0.2-1.0) mg/dL AST 15 (15-37) U/L ALT 11 L (14-59) U/L Alkaline Phosphatase 115 (46-116) U/L Troponin I High Sens <4.0 L (4.0-51.3) pg/mL NT-Pro-B Natriuret Pep 97.0 (<=900.0) pg/mL Total Protein 8.0 (6.4-8.2) g/dL Albumin 3.2 L (3.4-5.0) g/dL Globulin 4.8 g/dL Albumin/Globulin Ratio 0.7 Imaging Data Chest x-ray: Attestation: I have reviewed the pertinent imaging results. Radiologist's impression: ITS Impressions Chest X-Ray 12/20/23 13:08 IMPRESSION: Left lower lobe pneumonia Electronically authenticated by: GRUPO MENDEZ Date: 12/20/2023 13:45 ECG Data Attestation: I personally reviewed and interpreted this ECG as follows: (Normal sinus rhythm at a rate of 70, no acute ST elevation or ectopy. EKG reviewed by attending physician) Discharge Plan Discharge Stand Alone Forms: Portal Instructions Chief Complaint: Upper Respiratory Infection Clinical Impression: Upper respiratory infection, Left lower lobe pneumonia Patient Disposition: Home, Self-Care Time of Disposition Decision: 15:36 Condition: Good Prescriptions / Home Meds: New prednisone 20 mg tablet See Rx Instructions .ROUTE .COMPLEX Qty: 12 0RF Rx Instructions: 3 tabs daily for 2 days, then 2 tabs daily for 2 days, then 1 tab daily for 2 days albuterol sulfate 90 mcg/actuation HFA aerosol inhaler 2 inh inhalation Q4H PRN (Reason: shortness of breath or wheezing) Qty: 8.5 0RF ondansetron 4 mg tablet,disintegrating 4 mg PO Q6H PRN (Reason: nausea and vomiting) Qty: 12 0RF doxycycline hyclate 100 mg tablet 100 mg PO BID 10 Days Qty: 20 0RF Print Language: Macanese Instructions: Upper Respiratory Infection (ED), Pneumonia (ED) Referrals: Physician,Non-Staff, MD [Primary Care Provider] - 1 week
[2023-12-20 15:26] LABS: Lactate/Lactic Acid 1.1 mmol/L (0.4-2.0)
[2023-12-20 15:28] LABS: Alanine Aminotransferase 11 U/L (14-59); Albumin Globulin Ratio 0.7; Albumin Level 3.2 g/dL (3.4-5.0); Alkaline Phosphatase 115 U/L (46-116); Anion Gap 14.7; Aspartate Amino Transferase 15 U/L (15-37); BUN Creatinine Ratio 9.9; Bilirubin Total 0.2 mg/dL (0.2-1.0); Calcium 9.3 mg/dL (8.5-10.1); Carbon Dioxide 26.9 mmol/L (21.0-32.0); Chloride 101 mmol/L (98-107); Estimated GFR (African America >60 (>=60); Estimated GFR (Non-African Ame >60 (>=60); Globulin 4.8 g/dL; Glucose 118 mg/dL (74-106); Potassium 3.6 mmol/L (3.5-5.1); Sodium 139 mmol/L (136-145); Troponin I High Sensitivity <4.0 pg/mL (4.0-51.3)
[2023-12-20] MEDS: ONDANSETRON PF 4 MG/2 ML VIAL IV (15:34)
[2023-12-20] MEDS: METHYLPREDNISOLONE SOD SUCC PF 125 MG/2 ML VIAL IVP (15:34)
[2023-12-20] MEDS: ALBUTEROL SULFATE 2.5 MG/3 ML VIAL NEB IH (15:37)
[2023-12-20 15:38] VITALS: PULSE 80; RESP 16
== END 2023-12-20 16:34 | disposition home or self-care (01) ==
PROVIDERS: Physician Assistant; Emergency Provider Emergency Medicine
DX: J18.9 Pneumonia, unspecified organism (principal); J06.9 Acute upper respiratory infection, unspecified; F17.210 Nicotine dependence, cigarettes, uncomplicated
CPT/HCPCS: 36415; 71046; 80053; 83605; 83880; 84484; 85025; 87040; 93005; 94640; 96374; 96375; 99285; J2930

== ENCOUNTER 2024-01-03 13:10 | Emergency (ER) | payer BC, SELFPAY ==
[2024-01-03 13:14] VITALS: BP 115/84; PULSE 93; TEMP 36.4; O2SAT 99; BMI 23.0
--- OUTSIDE RECORDS SUMMARY | 2024-01-03 13:19 | XMS_ITS | CCD ---
Author Organization [facility] Care Team Providers Care Internet Programmer Name Role Phone Hajdari, Astrit H Unavailable Unavailable Hajdari, Astrit H Unavailable Unavailable Venegas, Nuria Unavailable Unavailable Venegas, Nuria Unavailable Unavailable Hajdari, Astrit H Unavailable Unavailable Hajdari, Astrit H Unavailable Unavailable DR NURIA VENEGAS Primary Care Unavailable DR YURY SAINI Admitting Unavailable YENY, DR YURY Meza Attending Unavailable YENY, DR YURY Meza Consulting Unavailable Allergies Allergy Classification Reported Allergen(s) Allergy Type Date of Onset Reaction(s) Facility (1 source) No Known Medication Allergies; Translations: [No Known Medication Allergies] Propensity to adverse reactions (disorder) [facility] Repository Problems Problem Classification Problem Date [...] Value Interpretation Reference Range Facility Covid-19 PCR (CVDTBH)on 05-28 SARS-CoV-2 (COVID-19) RNA KRISTEN+probe Ql (Unsp spec) Not detected Normal NOT DETECTED [facility] Comment on above: Result Comment: When diagnostic [...] for this test is supported by the [place] of Health and Human Service's declaration that [...] longer be used). Performed By: #### [facility] #### [facility] [address] [place] [address] Dr. Shameka Sánchez ED Note-Physicianon 11-19-19 ED Note-Physician Patient: JOSUE PIPER Age: 51 years Sex: Female : 1965 Associated Diagnoses: None Author: Yazmin GOMEZ, Manpreet Tyler Basic Information Time seen: Date & time [...] Medical/ Family/ Social History Medical history: Yareli ([id number]): Resolved.. Surgical history: No active procedure history items have been selected or recorded.. Family history: No family history items have been selected or recorded.. Social history: Social & Psychosocial VewwqpWnxykpg95/02/2017 Risk Assessment: Denies Alcohol UseSubstance Abuse08/28/2017 Risk [...] 0. Impression and Plan Diagnosis Strep pharyngitis (TMF44-ND J02.0, Discharge, Medical) Plan Condition: Stable. Disposition: Discharged: Time 11/14/17 17:33:00, to home. Prescriptions: Launch prescriptions Pharmacy:ibuprofen 600 mg Tab (Prescribe): 600 = 1 mg tab(s), Oral, q8hr, # 30 tab(s), Refills(s) 0Lidocaine Viscous 2% mucous membrane solution (Prescribe): 0.1 gram, 5 mL, Topical, TIDAC for mouth sore pain, 100 mL, Refill(s) 0. Patient was given the following educational materials: Strep Throat, Xfqy-ea-Znlk, Strep Throat, Auti-ph-Mbsh. Follow up with: Nuria Venegas In 3 [...] made to ensure accuracy, however, inadvertently computerized physical therapy assistant instructor mistakes may be present.Patient was treated and evaluated by the physician golf player assistant. The attending physician was in the emergency department at all times and supervised care. The case was discussed with the attending physician and diagnostics were reviewed as needed. Normal [facility] Comment on above: Result Comment: Elec tronically Signed By: Manpreet Arce PA-C\.br\Date and Time Signed: 11/14/17 17:44 EST\.br\Electronically Co-Signed By: Lisa Broderick, Yony Porter.br\Date and Time Co-Signed: 11/19/17 20:11 EST Coding Summary.on 11-16-2017 Coding Summary. CODING DATE: 018 FINAL [facility] STATUS: Home (Routine DC) PAYOR: [...] Revised Date Saved: 11/15/2017 10:38 pm Normal [facility] ED Clinical Summaryon 2017 ED Clinical Summary (Inserted Image. Franca ble to display) [place] [address] ED Clinical SummaryPerson Information Name: JANETT PIPER/AddisonViviana Age: 51 Years : 1965 12:00 AM Sex: Female Language:Nepali PCP: Rubi CHIN, Nuria Narvaez Marital Status: [...] PM 11/14/2017 6:32 PM 11/14/2017 6:32 PM ADDRESS:[address] [place] [id number] PHYS DOC NOTES: MEDICAL INFORMATION: Prescriptions Given:Prescription Display ibuprofen (ibuprofen 600 mg Tab) 600 mg = 1 tab(s), Oral, q8hr, # 30 tab(s), Refills(s) 0 lidocaine topical (Lidocaine Viscous 2% mucous membrane solution) 0.1 gram, 5 mL, Topical, TIDAC for mouth sore pain, 100 mL, Refill(s) 0 PATIENT EDUCATION INFORMATION: Instructions:Strep Throat, Whil-iz-Kasy Follow up:With: Address: When: Nuria Venegas [address] [facility] [place], [place] [id number] [facility] (1[employer] In 3 days 11/17/2017 Comments: Call in am for recheck later this week if you fail to improve. Take your ibuprofen and alternate with Tylenol every 4 hours back and forth so that they are 8 hours between the same medications. Use lidocaine viscous for topical anesthetic so that you can eat and drink without difficulty. Off work ?2 days DIAGNOSIS:Strep pharyngitis Normal [facility] ED Patient Education Noteon 11-14-2017 ED [...] 12/05/2012 Document Reviewed: 11/12/2011ExitCare? Patient Information ?2014 Hey[employer]. This information is not intended to replace advice given to you by your health care provider. Make sure you discuss any questions you have with your health care provider. Normal [facility] ED Patient Summaryon 018 ED Patient Summary (Inserted Image. Franca ble to display) [address] [address] Patient Discharge Instructions Person Information Name: JANETT PIPER Age: 51 Years Date: 11/14/2017 4:02 PMDischarge Diagnosis: Strep pharyngitis Primary Care Physician: Rubi CHIN, Nuria Narvaez Provider InformationPrimary Provider: Yony Gonzalez M.D. Risk Management Consultant:None The exam and treatment you received in the Emergency Department were for an urgent problem and are not intended as complete care. It is important that you follow up with a doctor, nurse practitioner, or physician?s golf player assistant for ongoing care. If your symptoms become worse or you do not improve as expected and you are unable to reach your usual health care provider, you should return to the Emergency Department. We are available 24 hours a day. JANETT PIPER has been given the following list of patient education materials, prescriptions and follow-up instructions: Follow-up Instructions:With: Address: When: Nuria Venegas [address] [place] [address] [facility] (1) In 3 days 11/17/2017 [...] nearby participating provider. Patient Education Materials:Strep Throat, Xfym-ni-Gduj Medications Given:Medication Dose Route penicillin G benzathine 0190905.00 unit(s) IntraMuscular Right Gluteus Medius ibuprofen 600.00 [...] to adjust medication. Refills: 0.Comment: Pharmacy Information: Paulo Mcguire Thank you for choosing [facility] Patient Education Materials: Strep ThroatStrep throat is [...] 12/05/2012 Document Reviewed: 11/12/2011ExitCare? Patient Information ?2014 HeyKiki. This information is not intended to replace advice given to you by your health care provider. Make sure you discuss any questions you have with your health care provider.I, JANETT PIPER , have received the following patient education materials/instructions and have verbalized understanding: Patient Education Materials: Strep Throat, Kiew-sa-Fvxv Follow-up Instructions: With: Address: When: Nuria Venegas [address] [place], [place] [id number] [facility] (1) In 3 days 11/17/2017 [...] Date Clinician/Nurse Signature Date 11/14/17 18:32:20 Normal [facility] Influenza A&B Agon 8 Influenzae A Ag Negative Normal Negative [facility] Comment on above: Performed By: #### 2 962833, 5883443, 8645044, 48640834, 82940961, 06014876 ####[facility] [address] [place] [address] Influenzae B Ag Negative Normal Negative [facility] Comment on above: Result Comment: Test sensitivity and specificity vary for age group, specimen type, antigen types, and prevalence of disease. Test results must be evaluated in conjunction with other clinical data available to the physician. Individuals who received nasally administered Influenza A vaccine may have positive test results up to 3 days after vaccination. Performed By: #### 2 176833, 7859676, 3536284, 30688271, 95558968, 28976755 ####[facility] [address] [place] [address] Progress Note-Nurseon 2017 Progress Note-Nurse Pt aware of need for medhold, will continue to moniotro closely Normal [facility] ED Note-Physicianon 09-20-20 ED Note-Physician Patient: [...] his sheets multiple times patient is a 84-swta-jvrj smoker she denies any change in weight recently. Denies any nodules or lymphadenopathy. Review of Systems Constitutional symptoms: Negative except as documented in HPI. Respiratory symptoms: no shortness of breath. Cardiovascular symptoms: no chest pain. Neurologic symptoms: no headache. Health Status Allergies: Allergic Reactions (Selected)No Known Medication Allergies. Past Medical/ Family/ Social History Medical history: ResolvedNone ([id number]): Resolved.. Social history: Social & Psychosocial NantyxYndpkka56/02/2017 Risk Assessment: Denies Alcohol UseSubstance Abuse08/28/2017 Risk [...] family practice within 3 days. Diagnosis Hypothyroid (IEY97-MP E03.9, Discharge, Medical) Plan Condition: Stable. Disposition: Discharged: to home. Normal [facility] Comment on above: Result Comment: Elec tronically Signed By: Leo CHIN, Guicho\.br\Date and Time Signed: 09/19/17 22:09 EST Coding Summary.on 08-30-2017 Coding Summary. CODING DATE: 017 FINAL [facility] STATUS: Home (Routine DC) PAYOR: Self Pay APC DESCRIPTION 5521 Level 1 Imaging without Contrast 5029 Level 5 Type A ED Visits ADMIT [...] Revised Date Saved: 08/30/2017 10:58 am Normal [facility] XR Chest 2 Viewson 7 XR [...] Transcribed by: ANN Technologist: LUIS F Normal [facility] Auto Diffon 08-28-2017 Basophils Auto #/vol (Bld) 0.4 % Normal 0.0-2.0 [facility] Comment on above: Order Comment: Order Added by Discern Expert. Performed By: #### 2 450506, 7830877, 8262793, 53032687, 15268233, 21145398 ####[facility] [address] [place] [address] Basophils Auto #/vol (Bld) 0.0 E9/L Normal 0.0-0.2 [facility] Comment on above: Order Comment: Order Added by Discern Expert. Performed By: #### 2 962850, 6460180, 7417259, 85028513, 38220018, 90334162 ####[facility] [address] [place] [address] Eosinophils 0.3 E9/L Normal 0.0-0.5 [facility] Comment on above: Order Comment: Order Added by Discern Expert. Performed By: #### 2 876474, 5499740, 7512679, 69429188, 60971318, 11457564 ####[facility] [address] [place] [address] Eosinophils/100 leukocytes 3.7 % Normal 0.0-8.0 [facility] Comment on above: Order Comment: Order Added by Discern Expert. Performed By: #### 2 806746, 0292126, 0503799, 33209978, 86503841, 06596686 ####[facility] [address] [place] [address] Lymphocytes 2.3 E9/L Normal 1.0-4.0 [facility] Comment on above: Order Comment: Order Added by Poppy Expert. Performed By: #### 2 134001, 9879466, 7739412, 43703985, 67380532, 05476773 ####[facility] [address] [place] [address] Lymphocytes/100 leukocytes 30.5 % Normal 14.0-50.0 [facility] Comment on above: Order Comment: Order Added by Poppy Expert. Performed By: #### 2 643238, 7710464, 9142925, 92262695, 71203686, 28421440 ####[facility] [address] [place] [address] Monocytes 1.0 E9/L Normal 0.2-1.0 [facility] Comment on above: Order Comment: Order Added by Poppy Expert. Performed By: #### 2 766702, 8278784, 4966835, 50168023, 11936350, 61814190 ####[facility] [address] [place] [address] Monocytes/100 leukocytes 13.1 % Normal 4.0-14.0 [facility] Comment on above: Order Comment: Order Added by Poppy Expert. Performed By: #### 2 685350, 6239181, 3042711, 11995109, 71398687, 63088605 ####[place] [address] [place] [address] Neutrophils 4.0 E9/L Normal 2.0-7.5 [facility] Comment on above: Order Comment: Order Added by Discern Expert. Performed By: #### 2 179803, 2057070, 6921471, 82573015, 23083040, 45419834 ####[place] [address] [place] [address] Neutrophils/100 leukocytes 52.3 % Normal 36.0-75.0 [facility] Comment on above: Order Comment: Order Added by Discern Expert. Performed By: #### 2 689664, 0258094, 2027625, 67096057, 43047574, 05923223 ####[address] [address] CBC w/ Auto Diffon 7 Erythrocyte distribution width Auto Ratio (RBC) 14.1 % Normal 10.9-14.2 [facility] Comment on above: Performed By: #### 2 132449, 5105720, 7418438, 33307558, 18925630, 33397035 ####[place] [address] [place] [address] Erythrocytes (RBC) 3.9 E12/L Low 4.3-5.9 [facility] Comment on above: Performed By: #### 2 770721, 3921429, 3747514, 41782709, 15111419, 95847404 ####[place] [address] [place] [address] Hematocrit (HCT) 36.0 % Normal 34.0-46.0 [facility] Comment on above: Performed By: #### 2 979545, 6774315, 1151137, 81434273, 66910236, 27149878 ####[place] [address] [place] [address] Hemoglobin mass conc (Bld) 12.6 g/dL Normal 12.0-16.0 [facility] Comment on above: Performed By: #### 2 377487, 9066204, 1370585, 93081258, 24876661, 89973582 ####[facility] [address] [place] [address] MCH 32.1 pg Normal 27.0-34.0 [facility] Comment on above: Performed By: #### 2 953078, 5318186, 2064512, 43332619, 97236656, 86683532 ####[place] [address] [place] [address] MCHC mass conc (RBC) 34.9 g/dL Normal 31.4-39.3 [facility] Comment on above: Performed By: #### 2 246489, 6314188, 2182669, 50526435, 29032459, 82464486 ####[facility] [address] [place] [address] MCV 92.0 fL Normal 80.0-100.0 [facility] Comment on above: Performed By: #### 2 024308, 2655857, 0011019, 15633958, 79804337, 68001666 ####[place] [address] [place] [address] Platelet mean volume (PMV) 7.7 fL Normal 6.4-10.8 [facility] Comment on above: Performed By: #### 2 039306, 9076591, 2130152, 41321902, 33415557, 98889500 ####[facility] [address] [place] [address] Platelets 272.0 E9/L Normal 150.0-500.0 [facility] Comment on above: Performed By: #### 2 549786, 1012957, 4729738, 82051600, 91561405, 04077540 ####[place] [address] [place] [address] WBC (Leukocytes) 7.6 E9/L Normal 4.0-11.0 [facility] Comment on above: Performed By: #### 2 072182, 1382361, 5260192, 14607511, 97871065, 34985526 ####[facility] [address] [place] [address] CMPon 08-28-2017 Alanine aminotransferase (ALT) 18 Int._Unit/L Normal 6-46 [facility] Comment on above: Performed By: #### 2 592485, 0901470, 5180122, 98405196, 49353766, 69840598 ####[facility] [address] [place] [address] Albumin 3.8 g/dL Normal 3.3-5.0 [facility] Comment on above: Performed By: #### 2 991835, 4709547, 1788681, 96640038, 51914127, 37874042 ####[facility] [address] [place] [address] Albumin 1.4 g/dL Normal 1.1-2.2 [facility] Comment on above: Performed By: #### 2 936750, 3697797, 4122573, 92842446, 60601599, 62587050 ####[facility] [address] [place] [address] Alkaline phosphatase (ALP) 79 Int._Unit/L Normal 21-98 [facility] Comment on above: Performed By: #### 2 294655, 5989371, 5805156, 46453363, 92494388, 57829790 ####[facility] [address] [place] [address] Aspartate aminotransferase (AST) 26 Int._Unit/L Normal 5-43 [facility] Comment on above: Performed By: #### 2 622444, 3179210, 4054357, 07302439, 51935797, 49286691 ####[facility] [address] [place] [address] Bilirubin (total) 0.4 mg/dL Normal 0.0-1.1 [facility] Comment on above: Performed By: #### 2 204086, 2740702, 0170011, 98910255, 08069425, 37232855 ####[facility] [address] [place] [address] BUN/Creatinine Ratio 19 No Units Normal 10-20 [facility] Comment on above: Performed By: #### 2 132333, 7871104, 9657955, 42834684, 66469073, 24575939 ####[facility] [address] [place] [address] Creatinine 0.8 mg/dL Normal 0.5-1.3 [facility] Comment on above: Performed By: #### 2 095159, 3824164, 4189653, 49349791, 33592326, 15811858 ####[facility] [address] [place] [address] Globulin 2.8 g/dL Normal 1.4-4.0 [facility] Comment on above: Performed By: #### 2 714637, 5818282, 7046173, 68539449, 25845669, 17423790 ####[facility] [address] [place] [address] Protein 6.6 g/dL Normal 6.0-7.8 [facility] Comment on above: Performed By: #### 2 711931, 7874078, 1855741, 34603894, 90013305, 55964223 ####[facility] [address] [place] [address] Urea nitrogen 15 mg/dL Normal 5-21 [facility] Comment on above: Performed By: #### 2 368680, 7655810, 8657262, 30049273, 78562566, 96045240 ####[facility] [address] [place] [address] Anion gap 8 mmol/L Normal 6-16 [facility] Comment on above: Performed By: #### 2 177237, 2762668, 5918694, 28188998, 91541690, 19586087 ####[facility] [address] [place] [address] Calcium 9.0 mg/dL Normal 8.9-11.1 [facility] Comment on above: Performed By: #### 2 299589, 8552519, 9020783, 02629842, 91833681, 96085375 ####[facility] [address] [place] [address] Chloride 103 mmol/L Normal 101-111 [facility] Comment on above: Performed By: #### 2 509117, 6034350, 8477961, 14268823, 57347388, 61794209 ####[facility] [address] [place] [address] CO2 30 mmol/L Normal 21-31 [facility] Comment on above: Performed By: #### 2 039205, 2644417, 7010315, 76722245, 32708937, 16103448 ####[facility] [address] [place] [address] Glucose mass conc 106 mg/dL Normal 55-199 [facility] Comment on above: Result Comment: If t his glucose result represents a fasting glucose, interpretation should refer to the following reference range: 55-99 mg/dL Performed By: #### 2 242837, 3110247, 3897209, 72840450, 22927642, 32712379 ####[facility] [address] [place] [address] Potassium molar conc 3.4 mmol/L Low 3.5-5.3 [facility] Comment on above: Performed By: #### 2 765522, 5708121, 6169858, 24995451, 97506982, 41052691 ####[facility] [address] [place] [address] Sodium 138 mmol/L Normal 135-145 [facility] Comment on above: Performed By: #### 2 286609, 4945742, 1977252, 99440558, 52203622, 64022565 ####[facility] [address] [place] [address] Cardiac 0 Hr.on 08-28-2017 CREATINE KINASE.MB:CCNC:PT:S ER/PLAS:QN:EIA 1.8 ng/mL Normal 0.3-4.9 [facility] Comment on above: Performed By: #### 2 317123, 3316664, 6487143, 56570596, 06437832, 08720382 ####[facility] [address] [place] [address] Myoglobin 20 ng/mL Normal <=69 [facility] Comment on above: Performed By: #### 2 373781, 5250390, 5257721, 52410806, 63699464, 48348355 ####[facility] [address] [place] [address] Troponin I.cardiac mass conc ng/mL Normal <=0.03 [facility] Comment on above: Result Comment: New Troponin Assay 02/08/14ROC NM Cutoff value > or = 0.03 ng/mL in conjunction with clinical conditions of myocardial infarction.(www.escardio.org/guidelines) Performed By: #### 2 637865, 7111183, 8954057, 12330844, 01976624, 83013056 ####[facility] [address] [place] [address] Creatine kinase (CK) 71 Int._Unit/L Normal 14-261 [facility] Comment on above: Performed By: #### 2 434923, 0046363, 1048930, 12678949, 03969455, 52885965 ####[facility] [address] [place] [address] ED Clinical Summaryon 2016 ED Clinical Summary (Inserted Image. Franca ble to display) [address] [address] ED Clinical SummaryPerson Information Name: JANETT PIPER/[facility] Age: 51 Years : 1965 12:00 AM Sex: Female Language:Nepali PCP: Nuria Venegas MD Marital Status: Visit [...] PM 08/28/2017 9:15 PM 08/28/2017 9:15 PM ADDRESS:[address] [place] [address] [place] [id number] [facility] DOC NOTES: MEDICAL INFORMATION: Prescriptions Given:Prescription Display levothyroxine (levothyroxine 50 mcg (0.05 mg) Tab) 50 microgram = 1 tab(s), Oral, Daily, pt advised to follow up with FP w/in 3 days to adjust medication, # 60 tab(s), Refills(s) 0 PATIENT EDUCATION INFORMATION: Instructions:Hypothyroidism Follow up:With: Address: When: Nuria Venegas [address] [place], [place] [address], [place] [id number] Business (1) In 3 days 08/31/2017 With: Address: When: Nuria Venegas [facility] [address] [facility] [place] [address] Business (1) In 3 days DIAGNOSIS:Hypothyroidism Normal [facility] ED Patient Education Noteon 08-28-2017 ED [...] hormone). This hormone tells the thyroid to turn laster more hormone.SYMPTOMS? Lethargy (feeling as though you [...] 12/05/2012 Document Reviewed: 05/03/2009ExitCare? Patient Information ?2014 HeyKiki. This information is not intended to replace advice given to you by your health care provider. Make sure you discuss any questions you have with your health care provider. Normal [facility] ED Patient Summaryon 017 ED Patient Summary (Inserted Image. Franca ble to display) [address] [address] Patient Discharge Instructions Person Information Name: JANETT PIPER Age: 51 Years Date: 08/28/2017 5:56 PMDischarge Diagnosis: Hypothyroidism Primary Care Physician: Nuria Venegas MD Provider InformationPrimary Provider: Evelyn Bailey MDcichanda Risk Management Consultant:None The exam and treatment you received in the Emergency Department were for an urgent problem and are not intended as complete care. It is important that you follow up with a doctor, nurse practitioner, or physician?s golf player assistant for ongoing care. If your symptoms become worse or you do not improve as expected and you are unable to reach your usual health care provider, you should return to the Emergency Department. We are available 24 hours a day. YELITZA PIPERMY WAYLON has been given the following list of patient education materials, prescriptions and follow-up instructions: Follow-up Instructions:With: Address: When: Nuria Venegas [address] [place] [address] Business (1) In 3 days 08/31/2017 With: Address: When: Nurai Venegas [address] [place] [address] Business (1) In 3 days In the event [...] Drug Francine Mcguire Thank you for choosing [facility] Patient Education Materials: HypothyroidismThe thyroid is a [...] hormone). This hormone tells the thyroid to turn laster more hormone.SYMPTOMS? Lethargy (feeling as though you [...] 12/05/2012 Document Reviewed: 05/03/2009ExitCare? Patient Information ?2014 Serviceful [facility]. This information is not intended to replace advice given to you by your health care provider. Make sure you discuss any questions you have with your health care provider.VERONIQUE Lundberg TAMMY KAY , have received the following patient education materials/instructions and have verbalized understanding: Patient Education Materials: Hypothyroidism Follow-up Instructions: With: Address: When: Nuria Venegas [address] [place] [id number] Business (1) In 3 days 08/31/2017 With: Address: When: Nuria Venegas [facility] [address] [facility], [place] [address] [facility] (1) In 3 days Prescriptions: [levothyroxine (levothyroxine 50 mcg (0.05 mg) Tab)] Patient Signature Date Clinician/Nurse Signature Date 08/28/17 21:15:34 Normal [facility] T4 & TSHon 08-28-2017 Thyroid stimulating hormone (TSH) 18.56 mcIU/mL High 0.34-5.60 [facility] Comment on above: Performed By: #### 2 [id number], [id number] ####[facility] [id number] [place] [address] Thyroxine (T4) 6.1 microgram/dL Normal 4.6-9.1 [facility] Comment on above: Performed By: #### 2 [id number], [id number], [id number], [id number] ####[facility] [address] [place] [address] eGFRon 08-28-2017 eGFR (black) mL/min/{1.73_m2} Normal >=59 [facility] Comment on above: Order Comment: Order added by Discern Expert. Result Comment: eGFR is race adjusted. AA=. Performed By: #### 2 [id number], [id number], [id number], [id number], [id number], [id number] ####[facility] [address] [place] [address] eGFR (non-black) mL/min/{1.73_m2} Normal >=59 [facility] Comment on above: Order Comment: Order added by Discern Expert. Result Comment: [employer] leslie kidney disease could be indicated at eGFR's of less than 60 mL/min/1.73m2. Kidney failure is indicated at less than 15 mL/min/1.73m2. Performed By: #### 2 [id number], [id number], [id number], [id number], [id number], [id number] ####[facility] [address] [place] [address] Encounters Encounter Date Encounter Type Care Provider Facility Start: 06-06-2022 End: 06-06-[address] NURIA VENEGAS Facility: Start: 11-14-2017 End: 11-14-2017 Emergency department patient visit Nuria Venegas [facility] [place] [place]: 08-28-2017 End: 08-28-2017 Emergency department patient visit Yony Gonzalez [place] [place] Payers Date Payer Category Payer Unknown [id number] 2017 Private Health Insurance [id number] 1965 Unknown [id number] 1958 Unknown [id number] Summary Purpose Family History No Family History Records FoundNo Family History Records Found Advance Directives No Advanced Directives Records FoundNo Advanced Directives Records Found Additional Source Comments INFORMATION SOURCE (unrecogn ized section and content) DATE CREATED AUTHOR 03/17/2018 [facility] DATE CREATED AUTHOR AUTHOR'S FAN SANCHEZ 06/08/2022 [facility] FOR RECORDS PERTAINING TO PATIENTS [...] BE BASED ON THE PRIMARY CLINICAL RECORDS. [employer] provides no warranty or guarantee of the accuracy or completeness of information in this document.
--- NOTE | 2024-01-03 13:24 | ED_ITS ---
Documented by User: WESLEY August 01/03/24 14:16 HPI - Weakness General Chief complaint: Weakness Stated complaint: GENERAL WEAKNESS Time Seen by Provider: 01/03/24 13:12 Source: patient Mode of arrival: walk-in History of Present Illness HPI Narrative: Patient is a 58-year-old female who presents to the emergency department for not feeling well and general weakness for the last month. She was initially diagnosed with influenza, return to the emergency department 2 weeks ago for generalized weakness and diagnosed with left lower lobe pneumonia. She finished antibiotics, steroids and was using an inhaler. Coughing and wheezing has improved but she states she still feels generally weak. She had a near syncopal episode at work last week where she felt very warm and vomited. She states she came to the emergency department today because she is not cleared to go back to work until she is evaluated. She has had no new fevers, no persistent vomiting or diarrhea. Related Data Previous Rx's ?Medication ?Instructions ?Recorded albuterol sulfate 90 mcg/actuation 2 inh inhalation Q4H PRN shortness 12/20/23 aerosol inhaler of breath or wheezing #8.5 grams doxycycline hyclate 100 mg tablet 100 mg PO BID 10 days #20 tabs 12/20/23 ondansetron 4 mg disintegrating 4 mg PO Q6H PRN nausea and 12/20/23 tablet vomiting #12 tabs prednisone 20 mg tablet See Rx Instructions .Route 12/20/23 .COMPLEX #12 tabs Allergies Allergy/AdvReac Type Severity Reaction Status Date / Time No Known Drug Allergies Allergy Verified 12/20/23 13:01 Review of Systems ROS Constitutional Reports: fatigue; Denies: fever or chills Ears, nose, mouth, and throat Denies: throat pain or nasal congestion Cardiovascular Denies: chest pain Respiratory Denies: shortness of breath or cough Gastrointestinal Reports: nausea and vomiting; Denies: diarrhea Musculoskeletal Denies: back pain Integumentary/Breast Denies: rash Neurological Denies: headache PFSH PFSH Social History Smoking status: Current every day smoker Exam Narrative Exam Narrative: Gen.: Awake, alert, in no distress Head: Normocephalic, atraumatic ENT: Moist mucous membranes Respiratory: No respiratory distress, lungs clear bilaterally Cardio: Regular rate and rhythm Extremities: Moves extremities equally Psych: Normal mood and affect Neuro: No focal neuro deficit Skin: Warm, dry, intact Constitutional Vital Signs, click to edit/add: Last Vital Signs Temp 97.6 F 01/03/24 13:14 Pulse 93 H 01/03/24 13:14 Resp 16 01/03/24 13:14 BP 115/84 01/03/24 13:14 Pulse Ox 99 01/03/24 13:14 O2 Del Method Room Air 01/03/24 13:14 Course Vital Signs Vital signs: Vital Signs Temperature 97.6 F 01/03/24 13:14 Pulse Rate 93 H 01/03/24 13:14 Respiratory Rate 16 01/03/24 13:14 Blood Pressure 115/84 01/03/24 13:14 Pulse Oximetry 99 01/03/24 13:14 Oxygen Delivery Method Room Air 01/03/24 13:14 Temperature 97.6 F 01/03/24 13:14 Pulse Rate 93 H 01/03/24 13:14 Respiratory Rate 16 01/03/24 13:14 Blood Pressure 115/84 01/03/24 13:14 Pulse Oximetry 99 01/03/24 13:14 Oxygen Delivery Method Room Air 01/03/24 13:14 MDM - Weakness MDM Narrative Medical decision making narrative: Patient with unremarkable EKG, stable labs and elevated TSH. She should follow- up with her PCP for further testing for her thyroid, chest x-ray shows decreased infiltrates/atelectasis of the left lower lobe with no evidence of worsening symptoms and stable vital signs. Patient was instructed to follow-up with her doctor for further evaluation and treatment. No indication for additional testing at this time. Return to the ER if symptoms change or worsen Medical Records Attestation: I reviewed the patient's medical records. Lab Data Attestation: I reviewed the patient's lab results. Labs: Lab Results 01/03/24 Range/Units 13:35 WBC 9.6 (4.0-11.0) 10^3/uL RBC 4.27 (4.20-5.40) 10^6/uL Hgb 12.8 (12.0-16.0) g/dL Hct 40.7 (36.0-48.0) % MCV 95.3 (81.0-99.0) fL MCH 30.0 (26.7-34.0) pg MCHC 31.4 (29.9-35.2) g/dL RDW 14.9 (11.0-15.0) % Plt Count 292 (150-450) 10^3/uL MPV 9.9 (9.5-13.5) fL Neut % (Auto) 57.8 (43.0-75.0) % Lymph % (Auto) 26.9 (20.5-60.0) % [place] % (Auto) 10.8 (1.7-12.0) % Eos % (Auto) 3.2 (0.9-7.0) % Baso % (Auto) 0.6 (0.2-2.0) % Neut # (Auto) 5.6 (1.4-6.5) 10^3/uL Lymph # (Auto) 2.6 (1.2-3.8) 10^3/uL [place] # (Auto) 1.0 H (0.3-0.8) 10^3/uL Eos # (Auto) 0.3 (0.0-0.7) 10^3/uL Baso # (Auto) 0.1 (0.0-0.1) 10^3/uL Abs Immat Gran (auto) 0.07 H (0.00-0.03) 10^3/uL Imm/Tot Granulo (auto) 0.7 H (0.0-0.5) % Sodium 140 (136-145) mmol/L Potassium 3.8 (3.5-5.1) mmol/L Chloride 103 (98-107) mmol/L Carbon Dioxide 27.2 (21.0-32.0) mmol/L Anion Gap 13.6 BUN 17.0 (7.0-18.0) mg/dL Creatinine 0.91 (0.55-1.02) mg/dL Est GFR ( Amer) >60 (>=60) Est GFR (Non-Af Amer) >60 (>=60) BUN/Creatinine Ratio 18.7 Glucose 98 (74-106) mg/dL Lactate 1.5 (0.4-2.0) mmol/L Calcium 8.7 (8.5-10.1) mg/dL Total Bilirubin 0.2 (0.2-1.0) mg/dL AST 20 (15-37) U/L ALT 21 (14-59) U/L Alkaline Phosphatase 111 (46-116) U/L Troponin I High Sens 4.6 (4.0-51.3) pg/mL Total Protein 7.2 (6.4-8.2) g/dL Albumin 3.2 L (3.4-5.0) g/dL Globulin 4.0 g/dL Albumin/Globulin Ratio 0.8 TSH 18.468 H (0.358-3.740) uIU/mL Imaging Data Chest x-ray: Attestation: I have reviewed the pertinent imaging results. Radiologist's impression: ITS Impressions Chest X-Ray 01/03/24 13:24 IMPRESSION: Minimal atelectatic and/or infiltrative changes in the left lower lung field decreased compared to the prior exam. Electronically authenticated by: EDSON BRANDT Date: 01/03/2024 13:54 ECG Data Attestation: I personally reviewed and interpreted this ECG as follows: (Sinus rhythm at a rate of 80, no acute ST elevation or ectopy. EKG reviewed by attending physician) Discharge Plan Discharge Stand Alone Forms: Portal Instructions Chief Complaint: Weakness Clinical Impression: Elevated TSH, Weakness Patient Disposition: Home, Self-Care Time of Disposition Decision: 14:13 Condition: Good Mode of Transportation: Private Vehicle Prescriptions / Home Meds: No Action prednisone 20 mg tablet See Rx Instructions .ROUTE .COMPLEX Qty: 12 0RF Rx Instructions: 3 tabs daily for 2 days, then 2 tabs daily for 2 days, then 1 tab daily for 2 days albuterol sulfate 90 mcg/actuation HFA aerosol inhaler 2 inh inhalation Q4H PRN (Reason: shortness of breath or wheezing) Qty: 8.5 0RF ondansetron 4 mg tablet,disintegrating 4 mg PO Q6H PRN (Reason: nausea and vomiting) Qty: 12 0RF doxycycline hyclate 100 mg tablet 100 mg PO BID 10 Days Qty: 20 0RF Print Language: German Instructions: Weakness (ED) Additional Instructions: Please follow up with your doctor for further thyroid testing Referrals: Physician,Non-Staff, MD [Primary Care Provider] - 1 week Discharge Date/Time: 01/03/24 14:22 Documented by User: Fredy Nina 01/03/24 18:15 HPI - Weakness General Chief complaint: Weakness Stated complaint: GENERAL WEAKNESS Time Seen by Provider: 01/03/24 13:12 Related Data Previous Rx's ?Medication ?Instructions ?Recorded albuterol sulfate 90 mcg/actuation 2 inh inhalation Q4H PRN shortness 12/20/23 aerosol inhaler of breath or wheezing #8.5 grams doxycycline hyclate 100 mg tablet 100 mg PO BID 10 days #20 tabs 12/20/23 ondansetron 4 mg disintegrating 4 mg PO Q6H PRN nausea and 12/20/23 tablet vomiting #12 tabs prednisone 20 mg tablet See Rx Instructions .Route 12/20/23 .COMPLEX #12 tabs Allergies Allergy/AdvReac Type Severity Reaction Status Date / Time No Known Drug Allergies Allergy Verified 12/20/23 13:01 [facility] Social History Smoking status: Current every day smoker Exam Constitutional Vital Signs, click to edit/add: Last Vital Signs Temp 97.6 F 01/03/24 13:14 Pulse 93 H 01/03/24 13:14 Resp 16 01/03/24 13:14 BP 115/84 01/03/24 13:14 Pulse Ox 99 01/03/24 13:14 O2 Del Method Room Air 01/03/24 13:14 Course Vital Signs Vital signs: Vital Signs Temperature 97.6 F 01/03/24 13:14 Pulse Rate 93 H 01/03/24 13:14 Respiratory Rate 16 01/03/24 13:14 Blood Pressure 115/84 01/03/24 13:14 Pulse Oximetry 99 01/03/24 13:14 Oxygen Delivery Method Room Air 01/03/24 13:14 Temperature 97.6 F 01/03/24 13:14 Pulse Rate 93 H 01/03/24 13:14 Respiratory Rate 16 01/03/24 13:14 Blood Pressure 115/84 01/03/24 13:14 Pulse Oximetry 99 01/03/24 13:14 Oxygen Delivery Method Room Air 01/03/24 13:14 MDM - Weakness MDM Narrative Medical decision making narrative: Patient with unremarkable EKG, stable labs and elevated TSH. She should follow- up with her PCP for further testing for her thyroid, chest x-ray shows decreased infiltrates/atelectasis of the left lower lobe with no evidence of worsening symptoms and stable vital signs. Patient was instructed to follow-up with her doctor for further evaluation and treatment. No indication for additional testing at this time. Return to the ER if symptoms change or worsen For this patient encounter I reviewed the mid-level provider?s documentation, medical decision-making and treatment plan, and I personally spent time with this patient. Shared APC visit, physician attestation: [id number]: The visit was performed by both a physician and an APC. I performed all aspects of MDM as documented. - Sien[place], DO Lab Data Labs: Lab Results 01/03/24 Range/Units 13:35 WBC 9.6 (4.0-11.0) 10^3/uL RBC 4.27 (4.20-5.40) 10^6/uL Hgb 12.8 (12.0-16.0) g/dL Hct 40.7 (36.0-48.0) % MCV 95.3 (81.0-99.0) fL MCH 30.0 (26.7-34.0) pg MCHC 31.4 (29.9-35.2) g/dL RDW 14.9 (11.0-15.0) % Plt Count 292 (150-450) 10^3/uL MPV 9.9 (9.5-13.5) fL Neut % (Auto) 57.8 (43.0-75.0) % Lymph % (Auto) 26.9 (20.5-60.0) % [place] % (Auto) 10.8 (1.7-12.0) % Eos % (Auto) 3.2 (0.9-7.0) % Baso % (Auto) 0.6 (0.2-2.0) % Neut # (Auto) 5.6 (1.4-6.5) 10^3/uL Lymph # (Auto) 2.6 (1.2-3.8) 10^3/uL [place] # (Auto) 1.0 H (0.3-0.8) 10^3/uL Eos # (Auto) 0.3 (0.0-0.7) 10^3/uL Baso # (Auto) 0.1 (0.0-0.1) 10^3/uL Abs Immat Gran (auto) 0.07 H (0.00-0.03) 10^3/uL Imm/Tot Granulo (auto) 0.7 H (0.0-0.5) % Sodium 140 (136-145) mmol/L Potassium 3.8 (3.5-5.1) mmol/L Chloride 103 (98-107) mmol/L Carbon Dioxide 27.2 (21.0-32.0) mmol/L Anion Gap 13.6 BUN 17.0 (7.0-18.0) mg/dL Creatinine 0.91 (0.55-1.02) mg/dL Est GFR ( Amer) >60 (>=60) Est GFR (Non-Af Amer) >60 (>=60) BUN/Creatinine Ratio 18.7 Glucose 98 (74-106) mg/dL Lactate 1.5 (0.4-2.0) mmol/L Calcium 8.7 (8.5-10.1) mg/dL Total Bilirubin 0.2 (0.2-1.0) mg/dL AST 20 (15-37) U/L ALT 21 (14-59) U/L Alkaline Phosphatase 111 (46-116) U/L Troponin I High Sens 4.6 (4.0-51.3) pg/mL Total Protein 7.2 (6.4-8.2) g/dL Albumin 3.2 L (3.4-5.0) g/dL Globulin 4.0 g/dL Albumin/Globulin Ratio 0.8 TSH 18.468 H (0.358-3.740) uIU/mL Imaging Data Chest x-ray: Radiologist's impression: ITS Impressions Chest X-Ray 01/03/24 13:24 IMPRESSION: Minimal atelectatic and/or infiltrative changes in the left lower lung field decreased compared to the prior exam. Electronically authenticated by: EDSON BRANDT Date: 01/03/2024 13:54 Discharge Plan Discharge Stand Alone Forms: Portal Instructions Chief Complaint: Weakness Clinical Impression: Elevated TSH, Weakness Patient Disposition: Home, Self-Care Time of Disposition Decision: 14:13 Condition: Good Mode of Transportation: Private Vehicle Prescriptions / Home Meds: No Action prednisone 20 mg tablet See Rx Instructions .ROUTE .COMPLEX Qty: 12 0RF Rx Instructions: 3 tabs daily for 2 days, then 2 tabs daily for 2 days, then 1 tab daily for 2 days albuterol sulfate 90 mcg/actuation HFA aerosol inhaler 2 inh inhalation Q4H PRN (Reason: shortness of breath or wheezing) Qty: 8.5 0RF ondansetron 4 mg tablet,disintegrating 4 mg PO Q6H PRN (Reason: nausea and vomiting) Qty: 12 0RF doxycycline hyclate 100 mg tablet 100 mg PO BID 10 Days Qty: 20 0RF Print Language: German Instructions: Weakness (ED) Additional Instructions: Please follow up with your doctor for further thyroid testing Referrals: Physician,Non-Staff, MD [Primary Care Provider] - 1 week Discharge Date/Time: 01/03/24 14:22
--- NOTE | 2024-01-03 13:24 | XR_ITS ---
The [address] [address] Patient Name: JANETT PIPER MRN: [id number] date: 1965 Sex: F Assigned Patient Location: ER Current Patient Location: ER Accession/Order Number: [id number] Exam Date: 01/03/2024 13:32 Report Date: 01/03/2024 13:54 At the request of: CRISTINA POWELL Procedure: XR chest 1V EXAM: XR chest 1V HISTORY: Weakness COMPARISON: Chest study dated 12/20/2023 TECHNIQUE: AP view of the chest was obtained with portable technique at 1:28 PM. FINDINGS: Heart and mediastinal contours are unremarkable in appearance. Slight patchy and linear densities in the left lower lung field compatible with minimal atelectatic and/or infiltrative changes decreased compared to the prior exam. No evidence of consolidation. No obvious pneumothorax. Bony structures appear grossly intact. XR/XR chest 1V IMPRESSION: Minimal atelectatic and/or infiltrative changes in the left lower lung field decreased compared to the prior exam. Electronically authenticated by: EDSON BRANDT Date: 01/03/2024 13:54
--- NOTE | 2024-01-03 13:24 | ECG_ITS ---
The [facility] Test Date: 2024-01-03 Pat Name: JANETT PIPER Department: Room: - Gender: Female Oncology Nurse Navigator: : 1965 Requested By: [id number] Order Number: [id number] Reading MD: SUNG BURGESS Measurements Intervals [place] Rate: 80 P: 81 GA: 160 QRS: 96 QRSD: 74 T: 76 QT: 354 QTc: 390 Interpretive Statements 1100 Sinus rhythm 7102 Moderate right axis deviation 9110 normal ECG Compared to ECG 12/20/2023 14:48:03 Right-axis deviation now present Electronically Signed On 01-03-2024 19:01:34 EDT by SUNG BURGESS
[2024-01-03 13:41] LABS: Basophils Absolute Auto 0.1 10^3/uL (0.0-0.1); Basophils Percent Auto 0.6 % (0.2-2.0); Eosinophils Absolute Auto 0.3 10^3/uL (0.0-0.7); Eosinophils Percent Auto 3.2 % (0.9-7.0); Hematocrit 40.7 % (36.0-48.0); Hemoglobin 12.8 g/dL (12.0-16.0); Immature Granulocytes Abs Auto 0.07 10^3/uL (0.00-0.03); Immature Granulocytes Pct Auto 0.7 % (0.0-0.5); Lymphocytes Absolute Auto 2.6 10^3/uL (1.2-3.8); Lymphocytes Percent Auto 26.9 % (20.5-60.0); Mean Corpuscular HGB Conc 31.4 g/dL (29.9-35.2); Mean Corpuscular Volume 95.3 fL (81.0-99.0); Mean Platelet Volume 9.9 fL (9.5-13.5); Monocytes Percent Auto 10.8 % (1.7-12.0); Neutrophils Absolute Auto 5.6 10^3/uL (1.4-6.5); Neutrophils Percent Auto 57.8 % (43.0-75.0); Platelet Count 292 10^3/uL (150-450); Red Blood Count 4.27 10^6/uL (4.20-5.40); Red Cell Distribution Width 14.9 % (11.0-15.0); White Blood Count 9.6 10^3/uL (4.0-11.0)
[2024-01-03] MEDS: 0.9 % SODIUM CHLORIDE 1,000 ML 999 ML IV (13:42)
[2024-01-03 13:58] LABS: Lactate/Lactic Acid 1.5 mmol/L (0.4-2.0)
[2024-01-03 14:05] LABS: Alanine Aminotransferase 21 U/L (14-59); Albumin Globulin Ratio 0.8; Albumin Level 3.2 g/dL (3.4-5.0); Alkaline Phosphatase 111 U/L (46-116); Anion Gap 13.6; Aspartate Amino Transferase 20 U/L (15-37); BUN Creatinine Ratio 18.7; Bilirubin Total 0.2 mg/dL (0.2-1.0); Calcium 8.7 mg/dL (8.5-10.1); Carbon Dioxide 27.2 mmol/L (21.0-32.0); Chloride 103 mmol/L (98-107); Estimated GFR (African America >60 (>=60); Estimated GFR (Non-African Ame >60 (>=60); Glucose 98 mg/dL (74-106); Potassium 3.8 mmol/L (3.5-5.1); Sodium 140 mmol/L (136-145); Thyroid Stimulating Hormone 18.468 uIU/mL (0.358-3.740); Total Protein 7.2 g/dL (6.4-8.2); Troponin I High Sensitivity 4.6 pg/mL (4.0-51.3)
== END 2024-01-03 14:22 | disposition home or self-care (01) ==
PROVIDERS: Physician Assistant; Emergency Provider Emergency Medicine
DX: R53.1 Weakness (principal); R94.6 Abnormal results of thyroid function studies; F17.210 Nicotine dependence, cigarettes, uncomplicated
CPT/HCPCS: 36415; 71045; 80053; 83605; 84443; 84484; 85025; 93005; 99285

== ENCOUNTER 2024-03-17 12:05 | Emergency (ER) | payer BC, SELFPAY ==
[2024-03-17 12:10] VITALS: BP 139/98; PULSE 87; TEMP 36.8; O2SAT 100; BMI 21.9
--- OUTSIDE RECORDS SUMMARY | 2024-03-17 13:12 | XMS_ITS | CCD ---
Author Organization [facility] Care Team Providers Care Cable Rigger Name Role Phone Hajdari, Astrit H Unavailable Unavailable Hajdari, Astrit H Unavailable Unavailable Nuria Venegas Unavailable Unavailable VenegasNuria dickson Unavailable Unavailable Hajdari, Astrit H Unavailable Unavailable Hajdari, Astrit H Unavailable Unavailable DR NURIA VENEGAS Primary Care Unavailable DR YURY SAINI Admitting Unavailable YENY, DR YURY Meza Attending Unavailable YENY, DR YURY Meza Consulting Unavailable Allergies Allergy Classification Reported Allergen(s) Allergy Type Date of Onset Reaction(s) Facility (1 source) No Known Medication Allergies; Translations: [No Known Medication Allergies] Propensity to adverse reactions (disorder) [facility] Repository Problems Problem Classification Problem Date [...] spec) Not detected Normal NOT DETECTED [facility] Comment on above: Result Comment: When [...] for this test is supported by the Quill Reamer of Health and Human Service's declaration that [...] longer be used). Performed By: #### [facility] #### [facility] [address] [place] [address] Dr. Shameka Sánchez ED Note-Physicianon 11-19-19 ED [...] Medical/ Family/ Social History Medical history: Yareli ([id number]): Resolved.. Surgical history: No active procedure history items have been selected or recorded.. Family history: No family history items have been selected or recorded.. Social history: Social & Psychosocial YpmltyAdpsnij81/02/2017 Risk Assessment: Denies Alcohol UseSubstance Abuse08/28/2017 Risk [...] 0. Impression and Plan Diagnosis Strep pharyngitis (CND78-YW J02.0, Discharge, Medical) Plan Condition: Stable. Disposition: Discharged: Time 11/14/17 17:33:00, to home. Prescriptions: Launch prescriptions Pharmacy:ibuprofen 600 mg Tab (Prescribe): 600 = 1 mg tab(s), Oral, q8hr, # 30 tab(s), Refills(s) 0Lidocaine Viscous 2% mucous membrane solution (Prescribe): 0.1 gram, 5 mL, Topical, TIDAC for mouth sore pain, 100 mL, Refill(s) 0. Patient was given the following educational materials: Strep Throat, Zbjn-ys-Povt, Strep Throat, Pqjf-vv-Gcov. Follow up with: Nruia Venegas In 3 days 11/17/2017 Call in [...] made to ensure accuracy, however, inadvertently computerized puttier mistakes may be present.Patient was treated and evaluated by the physician architectural administrative assistant. The attending physician was in the emergency department at all times and supervised care. The case was discussed with the attending physician and diagnostics were reviewed as needed. [facility] Comment on above: Result Comment: Elec tronically Signed By: Manpreet Arce PA-C\.br\Date and Time Signed: 11/14/17 17:44 EST\.br\Electronically Co-Signed By: Lisa Broderick, Yony Gibbons\.br\Date and Time Co-Signed: 11/19/17 20:11 EST Coding Summary.on 11-16-2017 Coding Summary. CODING DATE: 018 FINAL [facility] STATUS: Home (Routine DC) PAYOR: Medicaid EAPG [...] Revised Date Saved: 11/15/2017 10:38 pm Normal [facility] ED Clinical Summaryon 2017 ED Clinical Summary (Inserted Image. Franca ble to display) [place] [address] ED Clinical SummaryPerson Information Name: JANETT PIPRE/AddisoniVviana Age: 51 Years : 1965 12:00 AM Sex: Female Language:Turkmen PCP: Rubi CHIN, Nuria Narvaez Marital Status: [...] PM 11/14/2017 6:32 PM 11/14/2017 6:32 PM ADDRESS:[address] [place] [id number] [facility] DOC NOTES: MEDICAL INFORMATION: Prescriptions Given:Prescription Display ibuprofen (ibuprofen 600 mg Tab) 600 mg = 1 tab(s), Oral, q8hr, # 30 tab(s), Refills(s) 0 lidocaine topical (Lidocaine Viscous 2% mucous membrane solution) 0.1 gram, 5 mL, Topical, TIDAC for mouth sore pain, 100 mL, Refill(s) 0 PATIENT EDUCATION INFORMATION: Instructions:Strep Throat, Usay-so-Hhih Follow up:With: Address: When: Nuria Venegas [address] [facility] [place] [address] [facility] (1[employer] In 3 days 11/17/2017 Comments: Call in am for recheck later this week if you fail to improve. Take your ibuprofen and alternate with Tylenol every 4 hours back and forth so that they are 8 hours between the same medications. Use lidocaine viscous for topical anesthetic so that you can eat and drink without difficulty. Off work ?2 days DIAGNOSIS:Strep pharyngitis Normal [facility] ED Patient Education Noteon 11-14-2017 ED [...] 12/05/2012 Document Reviewed: 11/12/2011ExitCare? Patient Information ?2014 Qnekt. This information is not intended to replace advice given to you by your health care provider. Make sure you discuss any questions you have with your health care provider. Normal [facility] ED Patient Summaryon 018 ED Patient Summary (Inserted Image. Franca ble to display) [address] [address] Patient Discharge Instructions Person Information Name: JANETT PIPER Age: 51 Years Date: 11/14/2017 4:02 PMDischarge Diagnosis: Strep pharyngitis Primary Care Physician: Rubi CHIN, Nuria Narvaez Provider InformationPrimary Provider: Yony Gonzalez M.D.hysicichanda Paralegal Assistant:None The exam and treatment you received in the Emergency Department were for an urgent problem and are not intended as complete care. It is important that you follow up with a doctor, nurse practitioner, or physician?s architectural administrative assistant for ongoing care. If your symptoms become worse or you do not improve as expected and you are unable to reach your usual health care provider, you should return to the Emergency Department. We are available 24 hours a day. JANETT PIPER has been given the following list of patient education materials, prescriptions and follow-up instructions: Follow-up Instructions:With: Address: When: Nuria Venegas [address] [place] [address] Business (1) In 3 days 11/17/2017 Comments: Call [...] nearby participating provider. Patient Education Materials:Strep Throat, Hmhc-ja-Yfat Medications Given:Medication Dose Route penicillin G benzathine 4255585.00 unit(s) IntraMuscular Right Gluteus Medius ibuprofen 600.00 [...] adjust medication. Refills: 0.Comment: Pharmacy Information: Paulo Davis Thank you for choosing [facility] Patient Education Materials: Strep ThroatStrep throat [...] 12/05/2012 Document Reviewed: 11/12/2011ExitCare? Patient Information ?2014 Qnekt. This information is not intended to replace advice given to you by your health care provider. Make sure you discuss any questions you have with your health care provider.I, JANETT PIPER , have received the following patient education materials/instructions and have verbalized understanding: Patient Education Materials: Strep Throat, Wamt-vn-Eucw Follow-up Instructions: With: Address: When: Nuria Venegas [facility] [place] [address] [facility] (1) In 3 days 11/17/2017 Comments: Call [...] Date Clinician/Nurse Signature Date 11/14/17 18:32:20 [facility] Influenza A&B Agon 8 Influenzae A Ag Negative Normal Negative [facility] Comment on above: Performed By: #### 2 497146, 5024238, 2531277, 60753483, 72855415, 63350768 ####[facility] [address] [place] [address] Influenzae B Ag Negative Normal Negative [facility] Comment on above: Result Comment: Test sensitivity and specificity vary for age group, specimen type, antigen types, and prevalence of disease. Test results must be evaluated in conjunction with other clinical data available to the physician. Individuals who received nasally administered Influenza A vaccine may have positive test results up to 3 days after vaccination. Performed By: #### 2 471344, 7032967, 0680190, 28578332, 49332283, 03553135 ####[facility] [address] [place] [address] Progress Note-Nurseon 2017 Progress Note-Nurse Pt aware of need for medhold, will continue to moniotro closely [facility] ED Note-Physicianon 09-20-20 ED Note-Physician Patient: [...] his sheets multiple times patient is a 62-vfvq-faxa smoker she denies any change in weight recently. Denies any nodules or lymphadenopathy. Review of Systems Constitutional symptoms: Negative except as documented in HPI. Respiratory symptoms: no shortness of breath. Cardiovascular symptoms: no chest pain. Neurologic symptoms: no headache. Health Status Allergies: Allergic Reactions (Selected)No Known Medication Allergies. Past Medical/ Family/ Social History Medical history: ResolvedNone ([id number]): Resolved.. Social history: Social & Psychosocial WjoepcRumspfa93/02/2017 Risk Assessment: Denies Alcohol UseSubstance Abuse08/28/2017 Risk [...] family practice within 3 days. Diagnosis Hypothyroid (PKT19-NZ E03.9, Discharge, Medical) Plan Condition: Stable. Disposition: Discharged: to home. [facility] Comment on above: Result Comment: Elec tronically Signed By: Leo CHIN, Guicho\.terra\Date and Time Signed: 09/19/17 22:09 EST Coding Summary.on 08-30-2017 Coding Summary. CODING DATE: 017 FINAL [facility] STATUS: Home (Routine DC) PAYOR: Self Pay [...] Revised Date Saved: 08/30/2017 10:58 am [facility] XR Chest 2 Viewson 7 XR [...] Transcribed by: ANN Technologist: LUIS F [facility] Auto Diffon 08-28-2017 Basophils Auto #/vol (Bld) 0.4 % Normal 0.0-2.0 [facility] Comment on above: Order Comment: Order Added by Discern Expert. Performed By: #### 2 908717, 0722692, 4943867, 42250061, 26402209, 25586132 ####[facility] [address] [place] [address] Basophils Auto #/vol (Bld) 0.0 E9/L Normal 0.0-0.2 [facility] Comment on above: Order Comment: Order Added by Discern Expert. Performed By: #### 2 933133, 1402251, 6812490, 32660808, 55718651, 62569538 ####[facility] [address] [place] [address] Eosinophils 0.3 E9/L Normal 0.0-0.5 [facility] Comment on above: Order Comment: Order Added by Discern Expert. Performed By: #### 2 164741, 9870712, 9108495, 53584820, 45196017, 21661743 ####[place] [address] [place] [address] Eosinophils/100 leukocytes 3.7 % Normal 0.0-8.0 [facility] Comment on above: Order Comment: Order Added by Discern Expert. Performed By: #### 2 847606, 8910852, 4708810, 61612744, 30309868, 35342853 ####[place] [address] [place] [address] Lymphocytes 2.3 E9/L Normal 1.0-4.0 [facility] Comment on above: Order Comment: Order Added by Discern Expert. Performed By: #### 2 785506, 3926803, 1803211, 50057898, 73109499, 10530938 ####[facility] [address] [place] [address] Lymphocytes/100 leukocytes 30.5 % Normal 14.0-50.0 [facility] Comment on above: Order Comment: Order Added by Poppy Expert. Performed By: #### 2 682686, 2338643, 6511535, 91163755, 31262325, 11535139 ####[facility] [address] [place] [address] Monocytes 1.0 E9/L Normal 0.2-1.0 [facility] Comment on above: Order Comment: Order Added by Poppy Expert. Performed By: #### 2 867064, 5345153, 0660723, 86576239, 26246658, 86430616 ####[facility] [address] [place] [address] Monocytes/100 leukocytes 13.1 % Normal 4.0-14.0 [facility] Comment on above: Order Comment: Order Added by Discern Expert. Performed By: #### 2 355781, 1783597, 1655395, 71090289, 26786473, 86994379 ####[facility] [address] [place] [address] Neutrophils 4.0 E9/L Normal 2.0-7.5 [facility] Comment on above: Order Comment: Order Added by Discern Expert. Performed By: #### 2 911006, 0355245, 3807607, 26958188, 10334158, 76835439 ####[place] [address] [place] [address] Neutrophils/100 leukocytes 52.3 % Normal 36.0-75.0 [facility] Comment on above: Order Comment: Order Added by Discern Expert. Performed By: #### 2 905263, 8918591, 2943165, 97035994, 34609605, 52784101 ####[address] [address] CBC w/ Auto Diffon 7 Erythrocyte distribution width Auto Ratio (RBC) 14.1 % Normal 10.9-14.2 [facility] Comment on above: Performed By: #### 2 473730, 6521823, 1305805, 76134775, 28830893, 98306346 ####[place] [address] [place] [address] Erythrocytes (RBC) 3.9 E12/L Low 4.3-5.9 [facility] Comment on above: Performed By: #### 2 478890, 6380976, 7162113, 30587565, 85274820, 33209868 ####[place] [address] [place] [address] Hematocrit (HCT) 36.0 % Normal 34.0-46.0 [facility] Comment on above: Performed By: #### 2 923497, 4991191, 3405302, 34607421, 42099092, 15798464 ####[place] [address] [place] [address] Hemoglobin mass conc (Bld) 12.6 g/dL Normal 12.0-16.0 [facility] Comment on above: Performed By: #### 2 323211, 0041626, 4815339, 52368212, 92577368, 17818241 ####[facility] [address] [place] [address] MCH 32.1 pg Normal 27.0-34.0 [facility] Comment on above: Performed By: #### 2 060999, 7102695, 0492954, 22229960, 69625652, 14773148 ####[place] [address] [place] [address] MCHC mass conc (RBC) 34.9 g/dL Normal 31.4-39.3 [facility] Comment on above: Performed By: #### 2 400650, 9510906, 9225236, 88858681, 70258672, 75338578 ####[facility] [address] [place], [place] [address] MCV 92.0 fL Normal 80.0-100.0 [facility] Comment on above: Performed By: #### 2 720552, 7837875, 7036519, 94062015, 99955416, 90519661 ####[place] [address] [place] [address] Platelet mean volume (PMV) 7.7 fL Normal 6.4-10.8 [facility] Comment on above: Performed By: #### 2 672005, 1312616, 7206936, 13068601, 22755575, 01887656 ####[facility] [address] [place] [address] Platelets 272.0 E9/L Normal 150.0-500.0 [facility] Comment on above: Performed By: #### 2 140106, 7079497, 8477921, 77784881, 72813987, 60325512 ####[facility] [address] [place] [address] WBC (Leukocytes) 7.6 E9/L Normal 4.0-11.0 [facility] Comment on above: Performed By: #### 2 397811, 0827154, 1871308, 65221491, 37921411, 35372472 ####[facility] [address] [place] [address] CMPon 08-28-2017 Alanine aminotransferase (ALT) 18 Int._Unit/L Normal 6-46 [facility] Comment on above: Performed By: #### 2 041670, 3366288, 3000463, 62794702, 13314171, 51858085 ####[facility] [address] [place] [address] Albumin 3.8 g/dL Normal 3.3-5.0 [facility] Comment on above: Performed By: #### 2 777832, 9442802, 6662143, 10701258, 86826400, 28523056 ####[facility] [address] [place] [address] Albumin 1.4 g/dL Normal 1.1-2.2 [facility] Comment on above: Performed By: #### 2 740359, 0134680, 2116576, 55738999, 34716960, 74093529 ####[facility] [address] [place] [address] Alkaline phosphatase (ALP) 79 Int._Unit/L Normal 21-98 [facility] Comment on above: Performed By: #### 2 994500, 4009849, 8172443, 74974409, 59594863, 14013383 ####[facility] [address] [place] [address] Aspartate aminotransferase (AST) 26 Int._Unit/L Normal 5-43 [facility] Comment on above: Performed By: #### 2 463688, 7301154, 1155623, 33302726, 79174677, 49477414 ####[facility] [address] [place] [address] Bilirubin (total) 0.4 mg/dL Normal 0.0-1.1 [facility] Comment on above: Performed By: #### 2 441968, 0919643, 8046352, 95532899, 76276492, 20293772 ####[facility] [address] [place] [address] BUN/Creatinine Ratio 19 No Units Normal 10-20 [facility] Comment on above: Performed By: #### 2 971278, 0442515, 8394266, 16181224, 21658335, 54265995 ####[facility] [address] [place] [address] Creatinine 0.8 mg/dL Normal 0.5-1.3 [facility] Comment on above: Performed By: #### 2 802183, 5531745, 0363705, 19331613, 34520988, 96800766 ####[facility] [address] [place] [address] Globulin 2.8 g/dL Normal 1.4-4.0 [facility] Comment on above: Performed By: #### 2 640464, 2879263, 2784449, 20860207, 25077520, 07499129 ####[facility] [address] [place] [address] Protein 6.6 g/dL Normal 6.0-7.8 [facility] Comment on above: Performed By: #### 2 460320, 0914113, 3280056, 23647571, 17101194, 43314122 ####[facility] [address] [place] [address] Urea nitrogen 15 mg/dL Normal 5-21 [facility] Comment on above: Performed By: #### 2 141783, 0428910, 5681572, 68415261, 82511674, 33805747 ####[facility] [address] [place] [address] Anion gap 8 mmol/L Normal 6-16 [facility] Comment on above: Performed By: #### 2 728201, 7403885, 2071638, 61305418, 68754347, 17743234 ####[facility] [address] [place] [address] Calcium 9.0 mg/dL Normal 8.9-11.1 [facility] Comment on above: Performed By: #### 2 554159, 3740656, 5830782, 34343164, 50592134, 91889823 ####[facility] [address] [place] [address] Chloride 103 mmol/L Normal 101-111 [facility] Comment on above: Performed By: #### 2 423925, 6753838, 0085574, 21410331, 97443175, 58039777 ####[facility] [address] [place] [address] CO2 30 mmol/L Normal 21-31 [facility] Comment on above: Performed By: #### 2 472705, 2551608, 2802781, 70165008, 52567162, 20347746 ####[facility] [address] [place] [address] Glucose mass conc 106 mg/dL Normal 55-199 [facility] Comment on above: Result Comment: If t his glucose result represents a fasting glucose, interpretation should refer to the following reference range: 55-99 mg/dL Performed By: #### 2 978224, 6842968, 2575004, 42810066, 42441438, 53193691 ####[facility] [address] [place] [address] Potassium molar conc 3.4 mmol/L Low 3.5-5.3 [facility] Comment on above: Performed By: #### 2 232833, 2725357, 1136370, 34797031, 46323235, 07385436 ####[facility] [address] [place] [address] Sodium 138 mmol/L Normal 135-145 [facility] Comment on above: Performed By: #### 2 913462, 1628484, 8088228, 40724917, 64386035, 09639577 ####[facility] [address] [place] [address] Cardiac 0 Hr.on 08-28-2017 CREATINE KINASE.MB:CCNC:PT:S ER/PLAS:QN:EIA 1.8 ng/mL Normal 0.3-4.9 [facility] Comment on above: Performed By: #### 2 823524, 6970087, 9857721, 59383542, 67888560, 48618925 ####[facility] [address] [place] [address] Myoglobin 20 ng/mL Normal <=69 [facility] Comment on above: Performed By: #### 2 301440, 9280124, 2843376, 97835543, 76982391, 16118850 ####[facility] [address] [place] [address] Troponin I.cardiac mass conc ng/mL Normal <=0.03 [facility] Comment on above: Result Comment: New Troponin Assay 02/08/14ROC IA Cutoff value > or = 0.03 ng/mL in conjunction with clinical conditions of myocardial infarction.(www.escardio.org/guidelines) Performed By: #### 2 179687, 2880539, 5876922, 41497661, 65340534, 16839315 ####[facility] [address] [place] [address] Creatine kinase (CK) 71 Int._Unit/L Normal 14-261 [facility] Comment on above: Performed By: #### 2 408564, 9045168, 3029150, 23200664, 77628272, 90683003 ####[facility] [address] [place] [address] ED Clinical Summaryon 2016 ED Clinical Summary (Inserted Image. Franca ble to display) [address] [address] ED Clinical SummaryPerson Information Name: JANETT PIPER/Anabel Age: 51 Years : 1965 12:00 AM Sex: Female Language:Turkmen PCP: Nuria Venegas MD Marital Status: Visit [...] PM 08/28/2017 9:15 PM 08/28/2017 9:15 PM ADDRESS:[address] [place] [address] [place] DAV[place] [id number] [facility] DOC NOTES: MEDICAL INFORMATION: Prescriptions Given:Prescription Display levothyroxine (levothyroxine 50 mcg (0.05 mg) Tab) 50 microgram = 1 tab(s), Oral, Daily, pt advised to follow up with FP w/in 3 days to adjust medication, # 60 tab(s), Refills(s) 0 PATIENT EDUCATION INFORMATION: Instructions:Hypothyroidism Follow up:With: Address: When: Nuria [address] [place], [place] [address] [address] Business (1) In 3 days 08/31/2017 With: Address: When: Nuria [address] [place], [place] [address] [address] [facility] (1) In 3 days DIAGNOSIS:Hypothyroidism Normal [facility] ED Patient Education Noteon 08-28-2017 ED [...] hormone). This hormone tells the thyroid to handle turner more hormone.SYMPTOMS? Lethargy (feeling as though [...] 12/05/2012 Document Reviewed: 05/03/2009ExitCare? Patient Information ?2014 Qnekt. This information is not intended to replace advice given to you by your health care provider. Make sure you discuss any questions you have with your health care provider. Normal [facility] ED Patient Summaryon 017 ED Patient Summary (Inserted Image. Franca ble to display) [address] [address] Patient Discharge Instructions Person Information Name: JANETT PIPER Age: 51 Years Date: 08/28/2017 5:56 PMDischarge Diagnosis: Hypothyroidism Primary Care Physician: Nuria Venegas MD Provider InformationPrimary Provider: Eliezer Bailey MDsicichanda Paralegal Assistant:None The exam and treatment you received in the Emergency Department were for an urgent problem and are not intended as complete care. It is important that you follow up with a doctor, nurse practitioner, or physician?s architectural administrative assistant for ongoing care. If your symptoms [...] Instructions:With: Address: When: Nuria Venegas [address] [facility], [place] [id number] Business (1) In 3 days 08/31/2017 With: Address: When: Nuria Venegas [address] [facility], [place] [id number] Business (1) In 3 days In the [...] Refills: 0.Comment: Pharmacy Information: [facility] Francine Davis Thank you for choosing [facility] Patient Education Materials: HypothyroidismThe thyroid is [...] hormone). This hormone tells the thyroid to handle turner more hormone.SYMPTOMS? Lethargy (feeling as though [...] 12/05/2012 Document Reviewed: 05/03/2009ExitCare? Patient Information ?2014 [employer] [facility]. This information is not intended to replace advice given to you by your health care provider. Make sure you discuss any questions you have with your health care provider.VERONIQUE Lundberg TAMMY KAY , have received the following patient education materials/instructions and have verbalized understanding: Patient Education Materials: Hypothyroidism Follow-up Instructions: With: Address: When: Nuria [address]oss[address] [place] [address] [place] [address] [facility] (1) In 3 days 08/31/2017 With: Address: When: [place] [address] [facility] (1) In 3 days Prescriptions: [levothyroxine (levothyroxine 50 mcg (0.05 mg) Tab)] Patient Signature Date Clinician/Nurse Signature Date 08/28/17 21:15:34 [facility] T4 & TSHon 08-28-2017 Thyroid stimulating hormone (TSH) 18.56 mcIU/mL High 0.34-5.60 [facility] Comment on above: Performed By: #### 2 892094, 5485488, 5635585, 44115122, 40733173, 15165366 ####[facility] [address] [place] [address] Thyroxine (T4) 6.1 microgram/dL Normal 4.6-9.1 [facility] Comment on above: Performed By: #### 2 570405, 5152025, 3591079, 11292702, 01456330, 73817751 ####[facility] [address] [place] [address] eGFRon 08-28-2017 eGFR (black) mL/min/{1.73_m2} Normal >=59 [facility] Comment on above: Order Comment: Order added by Discern Expert. Result Comment: eGFR is race adjusted. AA=. Performed By: #### 2 768629, 8442368, 9307958, 36414401, 66528505, 67613076 ####[facility] [address] [place] [address] eGFR (non-black) mL/min/{1.73_m2} Normal >=59 [facility] Comment on above: Order Comment: Order added by Discern Expert. Result Comment: Ham Stringer leslie kidney disease could be indicated at eGFR's of less than 60 mL/min/1.73m2. Kidney failure is indicated at less than 15 mL/min/1.73m2. Performed By: #### 2 037449, 7275454, 7011306, 18559439, 37136698, 06522135 ####[facility] [address] [place] [address] Encounters Encounter Date Encounter Type Care Provider Facility Start: 06-06-2022 End: 06-06-[address] NURIA VENEGAS Facility: Start: 11-14-2017 End: 11-14-2017 Emergency department patient visit [facility] [place] [place]: 08-28-2017 End: 08-28-2017 Emergency department patient visit Yony Villegassuri Facility[place] [place] Payers Date Payer Category Payer Unknown [id number] 2017 Private Health Insurance [id number] 1965 Unknown [id number] 1958 Unknown [id number] Summary Purpose Family History No Family History Records FoundNo Family History Records Found Advance Directives No Advanced Directives Records FoundNo Advanced Directives Records Found Additional Source Comments INFORMATION SOURCE (unrecogn ized section and content) DATE CREATED AUTHOR 03/17/2018 [facility] DATE CREATED AUTHOR AUTHOR'S [facility] 06/08/2022 [facility] FOR RECORDS PERTAINING TO PATIENTS WHO ARE [...] BE BASED ON THE PRIMARY CLINICAL RECORDS. [employer] [facility]. provides no warranty or guarantee of the accuracy or completeness of information in this document.
--- NOTE | 2024-03-17 13:38 | ED.GENADUL1 ---
HPI HPI - General Adult General Chief complaint: Back Pain/Injury Stated complaint: back injury/pain Time Seen by Provider: 03/17/24 13:29 Source: patient Mode of arrival: walk-in History of Present Illness HPI narrative: Patient is a 58-year-old female presents to the ER with concerns of right-sided neck pain. Patient states on Wednesday she was helping someone move a air conditioner when she felt a pull/strain in the right side of her neck. She has a prior history of similar incident several years ago. She denies any numbness or tingling in her upper extremities. She denies any radiation of the pain. She notes pain with certain motions of her head and did call off work yesterday and today. She denies any headache or visual changes. There is been no fever or recent illness. Patient does not have a family doctor.Did take Motrin earlier today with minimal relief. Location: Reports neck (right trapezius) Related Data Home Medications ?Medication ?Instructions ?Recorded ?Confirmed No Known Home Medications 03/17/24 03/17/24 Previous Rx's ?Medication ?Instructions ?Recorded methylprednisolone 4 mg tablets in 4 mg PO DAILY #21 ea 03/17/24 a dose pack (Medrol (Cesar)) tizanidine 4 mg capsule (Zanaflex) 4 mg PO BID PRN muscle spasticity 03/17/24 #14 caps Allergies Allergy/AdvReac Type Severity Reaction Status Date / Time No Known Drug Allergies Allergy Verified 12/20/23 13:01 Opioid HPI Opioid Management Most Recent Opioid Data: Last Pain Scale 3 06/07/23 13:08 Review of Systems ROS Constitutional Denies: fever or chills Eyes Denies: change in vision Ears, nose, mouth, and throat Denies: throat pain or throat swelling Cardiovascular Denies: chest pain, palpitations, edema, swelling of feet/ankles or shortness of breath when lying down Respiratory Denies: shortness of breath or cough Gastrointestinal Denies: abdominal pain, nausea or vomiting Genitourinary Denies: painful urination Musculoskeletal Reports: neck pain; Denies: back pain or extremity pain Integumentary/Breast Denies: rash Neurological Denies: headache Psychiatric Denies: anxiety PFSH PFSH Social History Smoking status: Current every day smoker Exam Narrative Exam Narrative: Nurses notes and vital signs reviewed and patient is not hypoxic. General: The patient appears well and in no apparent distress. Patient is resting comfortably on cart. Skin: Warm, dry, no pallor noted.Evidence of rash Head: Normocephalic, atraumatic Neck: Supple, trachea mid-line, no tenderness The midline bones or left paravertebral region. Right trapezius noted for focal muscle spasm consistent with trigger point. There is no tenderness to the clavicle or distal AC joint. Patient has fairly good painless range of motion with only tenderness with looking to the right and palpation., no lymphadenopathy, no Meningeal signs Eye: Pupils are equal, round and reactive to light, EOMI Ears, Nose, Mouth, and Throat: TM are clear, normal light reflex, oral mucosa is moist, no posterior oropharynx erythema or hypertrophy, uvula is mid-line Cardiovascular: Regular Rate and Rhythm Respiratory: Patient is in no distress, no accessory muscle use, lungs are clear to auscultation, no wheezing, rales or rhonchi. Chest Wall: no tenderness Back: non-tender, no CVA tenderness Musculoskeletal: normal ROM, no tenderness, no swelling full strength in hand sewer shoes bilateral wrist 5/5, bicep/ tricep and shoulder shrug all 5/5 Neurological: A&O x4, Reflexes 2+ symmetric biceps, triceps and brachial radialis, negative clonus. Negative Kilo sign. Psychiatric: Cooperative Constitutional Vital Signs, click to edit/add: Last Vital Signs Temp 98.3 F 03/17/24 12:10 Pulse 87 03/17/24 12:10 Resp 16 03/17/24 12:10 BP 139/98 H 03/17/24 12:10 Pulse Ox 100 03/17/24 12:10 O2 Del Method Room Air 03/17/24 12:10 Course Vital Signs Vital signs: Vital Signs Temperature 98.3 F 03/17/24 12:10 Pulse Rate 87 03/17/24 12:10 Respiratory Rate 16 03/17/24 12:10 Blood Pressure 139/98 H 03/17/24 12:10 Pulse Oximetry 100 03/17/24 12:10 Oxygen Delivery Method Room Air 03/17/24 12:10 Temperature 98.3 F 03/17/24 12:10 Pulse Rate 87 03/17/24 12:10 Respiratory Rate 16 03/17/24 12:10 Blood Pressure 139/98 H 03/17/24 12:10 Pulse Oximetry 100 03/17/24 12:10 Oxygen Delivery Method Room Air 03/17/24 12:10 Medical Decision Making MDM Narrative Medical decision making narrative: Discussed focal trigger point On exam, offered injection. Patient declined, states she does not like the thought of needles. She is requesting a work note. She is agreeable to a Medrol Dosepak which she has taken previously with, side effects discussed. She will be prescribed a mild muscle relaxant to use at bedtime. We discussed stretching. Patient given list of family doctors for follow-up and may need physical therapy referral, she may also explore congregational care pastor with access to care discussed at bedside. Patient will return to the ER if symptoms worsen or new symptoms develop. Imaging not indicated with exam. SUPERVISED APC VISIT, PHYSICIAN ATTESTATION: Based on the medical record the care appears appropriate. ? The patient is to followup with primary care physician in next 2-3 days or to return to the emergency department should any of the signs or symptoms worsen or new symptoms develop. Patient had questions answered. The patient agrees with the following Diagnosis and Treatment plan and the patient will be discharged home. Discharge Plan Discharge Stand Alone Forms: Portal Instructions Chief Complaint: Back Pain/Injury Clinical Impression: Spasm of right trapezius muscle, Trigger point of neck Patient Disposition: Home, Self-Care Time of Disposition Decision: 13:39 Condition: Good Prescriptions / Home Meds: New tizanidine [Zanaflex] 4 mg capsule 4 mg PO BID PRN (Reason: muscle spasticity) Qty: 14 0RF Rx Instructions: do not drive with rx methylprednisolone [Medrol (Cesar)] 4 mg tablets,dose pack 4 mg PO DAILY Qty: 21 0RF No Action No Known Home Medications Print Language: Malaysian Instructions: Muscle Spasm (ED) Additional Instructions: Could call local chiropracter as well if unable to get in with PCP for physical therapy referral timely ( info sheet given on Providers accepting new patients) Referrals: EUSEBIA SIMPSON [Nurse Practitioner] - As soon as possible
== END 2024-03-17 13:49 | disposition home or self-care (01) ==
PROVIDERS: Emergency Provider Emergency Medicine
DX: S16.1XXA Strain of muscle, fascia and tendon at neck level, initial encounter (principal); X50.9XXA Other and unspecified overexertion or strenuous movements or postures, initial encounter; F17.200 Nicotine dependence, unspecified, uncomplicated
CPT/HCPCS: 99283

== ENCOUNTER 2024-10-19 12:57 | Emergency (ER) | payer BC, SELFPAY ==
[2024-10-19 13:09] VITALS: BP 146/76; PULSE 86; TEMP 36.8; O2SAT 100; BMI 23.0
[2024-10-19 14:13] LABS: Influenza Virus A Antigen Negative; Influenza Virus B Antigen Negative; Internal Control Within Normal Limits; Respiratory Syncytial Virus Not Detected (NOT DETECTE); SARS-CoV-2 Ag NEGATIVE (NEGATIVE)
--- NOTE | 2024-10-19 14:49 | ED.URI1 ---
HPI - URI/Sore Throat General Chief Complaint: Upper Respiratory Infection Stated Complaint: FEVER Time Seen by Provider: 10/19/24 14:31 Source: patient Limitations: no limitations History of Present Illness HPI Narrative: The patient comes to the ER with a cough, she was waiting in the waiting room when she had all swabs for COVID flu and RSV The patient when got to the room she mentioned that she has been having a cough for the last few weeks Related Data Home Medications ?Medication ?Instructions ?Recorded ?Confirmed No Known Home Medications 03/17/24 03/17/24 Previous Rx's ?Medication ?Instructions ?Recorded methylprednisolone 4 mg tablets in 4 mg PO DAILY #21 ea 03/17/24 a dose pack (Medrol (Cesar)) tizanidine 4 mg capsule (Zanaflex) 4 mg PO BID PRN muscle spasticity 03/17/24 #14 caps Allergies Allergy/AdvReac Type Severity Reaction Status Date / Time No Known Drug Allergies Allergy Verified 10/19/24 13:09 PFSH PFS Social History Smoking status: Current every day smoker Little interest or pleasure in doing things: not at all Feeling down, depressed, or hopeless: not at all Exam Constitutional Vital Signs, click to edit/add: Last Vital Signs Temp 98.2 F 10/19/24 13:09 Pulse 86 10/19/24 13:09 Resp 18 10/19/24 13:09 BP 146/76 H 10/19/24 13:09 Pulse Ox 100 10/19/24 13:09 O2 Del Method Room Air 10/19/24 13:09 Course Vital Signs Vital signs: Vital Signs Temperature 98.2 F 10/19/24 13:09 Pulse Rate 86 10/19/24 13:09 Respiratory Rate 18 10/19/24 13:09 Blood Pressure 146/76 H 10/19/24 13:09 Pulse Oximetry 100 10/19/24 13:09 Oxygen Delivery Method Room Air 10/19/24 13:09 Temperature 98.2 F 10/19/24 13:09 Pulse Rate 86 10/19/24 13:09 Respiratory Rate 18 10/19/24 13:09 Blood Pressure 146/76 H 10/19/24 13:09 Pulse Oximetry 100 10/19/24 13:09 Oxygen Delivery Method Room Air 10/19/24 13:09 MDM - URI/Sore Throat MDM Narrative Medical decision making narrative: I did not examine the patient I just present to the bedside to speak with her. By the time I obtain that she have sinusitis and possibly bronchitis The patient just left the room before my full assessment Lab Data Labs: Lab Results 10/19/24 Range/Units 13:13 Influenza Type A Ag Negative Influenza Type B Ag Negative RSV Antigen Not detected (NOT DETECTE) SARS-CoV-2 Ag (CV2AG) Negative (NEGATIVE) Discharge Plan Discharge Stand Alone Forms: Portal Instructions Chief Complaint: Upper Respiratory Infection Clinical Impression: Sinusitis Patient Disposition: Left Against Medical Advice Mode of Transportation: Private Vehicle Prescriptions / Home Meds: No Action No Known Home Medications tizanidine [Zanaflex] 4 mg capsule 4 mg PO BID PRN (Reason: muscle spasticity) Qty: 14 0RF Rx Instructions: do not drive with rx methylprednisolone [Medrol (Cesar)] 4 mg tablets,dose pack 4 mg PO DAILY Qty: 21 0RF Print Language: [place] Irish Referrals: Physician,Non-Staff, MD [Primary Care Provider] - 1 week Discharge Date/Time: 10/19/24 14:45
== END 2024-10-19 14:45 | disposition left against medical advice (07) ==
PROVIDERS: Emergency Provider Emergency Medicine
DX: J32.9 Chronic sinusitis, unspecified (principal); Z53.29 Procedure and treatment not carried out because of patient's decision for other reasons; F17.200 Nicotine dependence, unspecified, uncomplicated
CPT/HCPCS: 87420; 87804; 87811; 99283